=== PATIENT | female | born 1965 | race Caucasian/White ===

== ENCOUNTER → 2020-08-01 09:22 | Outpatient (CLI) | payer BC, SELFPAY ==
--- NOTE | ~2020-08-01 | US_ITS ---
US right upper quadrant INDICATION: Elevated liver enzymes PROCEDURE: Realtime right upper abdominal ultrasound. COMPARISON: No prior studies for comparison. FINDINGS: The pancreas is normal without focal mass or pancreatic ductal dilation. Liver echotexture is increased, consistent with fatty infiltration. There is normal directional flow in the portal ve in. The gallbladder is normal without stones, gallbladder wall thickening or pericholecystic fluid. Comm on bile duct measures 7 mm. No sonographic Aviles's sign. IMPRESSION: 1: Borderline size common bile duct measuring 7 mm. No obstructing stone or mass identified. 2: Hepatic steatosis. Reviewed, dictated and finalized at location A. IMPRESSION: 1: Borderline size common bile duct measuring 7 mm. No obstructing stone or mas s identified. 2: Hepatic steatosis.
== END ==
PROVIDERS: PCP Nurse Practitioner Family; Visit Provider Nurse Practitioner Family
DX: R74.8 Abnormal levels of other serum enzymes (principal); K76.0 Fatty (change of) liver, not elsewhere classified
CPT/HCPCS: 76705

== ENCOUNTER 2021-01-15 08:01 | Outpatient (CLI) | payer BC, SELFPAY | END 2021-01-15 08:02 | disposition home or self-care (01) | LOC: ANHCOVIDVC 08:01 | PROVIDERS: PCP Nurse Practitioner Family | DX: Z23 Encounter for immunization (principal) | CPT/HCPCS: 0001A; 91300 ==

== ENCOUNTER 2021-02-05 08:30 | Outpatient (CLI) | payer BC, SELFPAY | END 2021-02-05 08:31 | LOC: ANHCOVIDVC 08:30 | PROVIDERS: PCP Nurse Practitioner Family | DX: Z23 Encounter for immunization (principal) | CPT/HCPCS: 0002A; 91300 ==

== ENCOUNTER → 2021-07-01 10:29 | Outpatient (CLI) | payer BC, SELFPAY ==
--- NOTE | ~2021-07-01 | MM_ITS ---
EXAMINATION: MM screening [facility] BI w jassi HISTORY: Screening mammogram TECHNIQUE: Craniocaudal and mediolateral oblique 3-D tomosynthesis images were obtained and synthetic 2-D images were generated. CAD analysis was submitted and interpreted. COMPARISON: 10/21/2018, 04/15/2017 BREAST PARENCHYMAL COMPOSITION: There are scattered areas of fibroglandular density. FINDINGS: There is no evidence of suspicious mass, calcification, or architectural distortion to sugg est malignancy in either breast. There has been no suspicious interval change. IMPRESSION: 1. No mammographic evidence of malignancy. 2. Recommend routine screening mammography in one year. BI-RADS Category 1: Negative Reviewed, dictated and finalized at location A.
--- NOTE | ~2021-07-01 | DEXA_ITS ---
Bone Density Report Name: Lise Morgan Age: 55 Sex: Female Ethnicity: White Date of : 1965 Indication: osteopenia; height loss; prior fracture; postmenopausal Referring Provider: NORMACOLBY Rodriguez Study: Bone densitometry was performed. Exam Date: July 01, 2021 Accession number: [id number] Bone Density: Region BMD T-score Z-score Classification AP Spine (L1-L4) 0.990 -0.5 0.7 Normal Femoral Neck (Left) 0.641 -1.9 -0.7 Osteopenia Total Hip (Left) 0.765 -1.5 -0.6 Osteopenia Femoral Neck (Right) 0.629 -2.0 -0.8 Osteopenia Total Hip (Right) 0.755 -1.5 -0.7 Osteopenia Total Hip Mean 0.760 -1.5 -0.7 Osteopenia World Health Organization criteria for BMD impression classify patients as: Normal (T-score at or above -1.0), Osteopenia (T-score between -1.0 and -2.5), or Osteoporosis (T-score at or below -2.5). 10-year Fracture Risk(1): Major Osteoporotic Fracture 17% Hip Fracture 4.7% Reported Risk Factors: [place] (), Neck BMD=0.629, BMI=21.7, previous fracture, smoking, alcohol use (1) FRAX(R) Version 3.08. Fracture probability calculated for an untreated patient. Fracture probability may be lower if the patient has received treatment. Previous Exams: Region Exam Age BMD T-score BMD Change BMD Change Date g/cm2 vs Baseline vs Previous AP Spine(L1-L4) 07/01/2021 55 0.990 -0.5 0.059* 0.059* 12/06/2018 53 0.932 -1.0 Total Hip(Left) 07/01/2021 55 0.765 -1.5 0.021 0.021 12/06/2018 53 0.744 -1.6 Total Hip(Right) 07/01/2021 55 0.755 -1.5 0.023 0.023 12/06/2018 53 0.732 -1.7 *Denotes significance at 95% confidence level, LSC for AP Spine = 0.022 g/cm2, LSC for Total Hip = 0.027 g/cm2 Clinical Information Provided by Patient: Has had a low trauma fracture Smokes Has 3 or more alcoholic drinks per day Has used the following medications: Vitamin D Patient maximum height was 66.5 Menopause Age: 46 No regular weight bearing exercise Drinks caffeinated beverages Onset of menses at age 13 Number of children 2 Impression: The patient has low bone mass, based on the Right Femoral Neck T-score. The patient has an estimated ten-year risk of hip fracture of 4.7% and an estimated ten-year risk of major fracture of 17%, based on the WHO FRAX algorithm. The patient has risk factors, including: smoking, excessive alcohol use, previous fracture. No significant bone loss
== END ==
PROVIDERS: PCP Nurse Practitioner Family; Visit Provider Nurse Practitioner Family
DX: Z12.31 Encounter for screening mammogram for malignant neoplasm of breast (principal); Z13.820 Encounter for screening for osteoporosis; M85.88 Other specified disorders of bone density and structure, other site; M85.851 Other specified disorders of bone density and structure, right thigh; M85.852 Other specified disorders of bone density and structure, left thigh
CPT/HCPCS: 77063; 77067; 77080

== ENCOUNTER 2021-09-29 10:14 | Emergency (ER) | payer BC, SELFPAY ==
--- NOTE | ~2021-09-29 | XR_ITS ---
EXAMINATION: XR wrist LT min 3V DATE: 09/29/2021 10:37 INDICATION: Left wrist injury and swelling. TECHNIQUE: 4 views of left wrist were obtained. COMPARISON: None. FINDINGS: There is a comminuted fracture of distal radius with fracture lines involving the distal ar ticular surface and radioulnar joint. The main distal fracture fragment demonstrates impaction, 2 mm dorsal displacement, and dorsal angulation. There is 16 degrees dorsal tilt of the distal articular s urface. There is a comminuted fracture of the ulnar styloid, head, and neck in near-anatomic alignmen t. There is moderate osteoarthritis of first carpometacarpal joint. IMPRESSION: 1. Comminuted fractures of distal radius and ulna. Reviewed, dictated and finalized at location B. GRATION PATROL INSPECTOR
[2021-09-29 10:28] VITALS: BP 145/78; PULSE 88; RESP 18; TEMP 36.3; O2SAT 100
--- NOTE | 2021-09-29 10:36 | ED.UPPEXIN ---
HPI - Extremity Injury (Upper) General Chief Complaint: Extremity Injury, Upper Stated Complaint: Left Hand Pain Time Seen by Provider: 09/29/21 10:38 Source: patient, family, RN notes reviewed and old records reviewed Mode of arrival: ambulatory Limitations: no limitations History of Present Illness HPI narrative: 56-year-old female presents to the [facility] with complaints of left wrist and hand pain after tripping over her dog and landing with arm stretched out last night. Significant swelling, pain and bruising noted. Able to move fingers limited. Pain in the wrist. Pain with movement of the fingers. Able to do a thumbs up. Capillary refill under 2 seconds. Sensation intact distal to injuries. Denies any chest pain or shortness of breath. No abdominal pain. Denies hitting head, no loss of consciousness. Related Data Home Medications Medication Instructions Recorded Confirmed alendronate 70 mg PO DAILY 09/29/21 09/29/21 cyclobenzaprine 10 mg PO TID 09/29/21 09/29/21 lisinopril 10 mg PO DAILY 09/29/21 09/29/21 metoprolol tartrate 25 mg PO DAILY 09/29/21 09/29/21 rosuvastatin 20 mg PO DAILY 09/29/21 09/29/21 Allergies Allergy/AdvReac Type Severity Reaction Status Date / Time No Known Allergies Allergy Unverified 09/29/21 10:31 Review of Systems Review of Systems: All systems reviewed & are unremarkable except as noted in HPI and below Constitutional: Constitutional: Reports no additional constitutional complaints, Denies chills and Denies fever(s) Eyes: Eyes: Reports no additional eye complaints ENT: Reports system reviewed and no additional complaints, except as documented Cardiovascular: Cardiovascular: Reports no additional cardiovascular complaints and Denies chest pain Respiratory: Respiratory: Reports no additional respiratory complaints, Denies cough and Denies dyspnea Gastrointestinal: Gastrointestinal: Reports no additional gastrointestinal complaints, Denies abdominal pain, Denies nausea and Denies vomiting Musculoskeletal: Musculoskeletal: Reports as per HPI Comments: Left wrist pain, swelling, bruising Integumentary/Breasts: Skin/Breast: Reports system reviewed and no additional complaints, except as docu Neurologic: Reports system reviewed and no additional complaints, except as documented, Denies focal weakness, Denies numbness and Denies weakness Psychiatric: Psychiatric: Reports no additional psychiatric complaints Allergic/Immunologic: Allergic/Immunologic: Reports no additional allergic/immunologic complaints [facility] Past Medical History Medical History (Updated 09/29/21 @ 20:35 by Carrie Ellis) High cholesterol Hypertension Surgical History Surgical History (Updated 09/29/21 @ 20:35 by Carrie Ellis) History of heart surgery Family History Family History Other Family history of coronary artery disease Social History Social History (Updated 09/29/21 @ 20:35 by Carrie Ellis) Smoking status: Never smoker Alcohol intake: current Living arrangements: with family Gender identity (if verbalized by the patient): Female Comments Discharge instructions reviewed with patient, as well as provided in writing per nursing staff. The instructions also include specific and strict return/GO TO THE ER as well as f/u information. All questions have been answered, and the patient deny any further questions with discharge and discharge plan. Exam Const: General: alert and ill appearing acutely (Pain) and chronically Nutritional Appearance: thin Orientation/consciousness: patient oriented x3 Limitations: no limitations HENMT: Head: normal to inspection Eyes: Pupils: Equal, round and reactive pupils present Neck: Neck: normal visual inspection Chest: Chest palpation & inspection: normal inspection of the chest Resp: Effort & Inspection: normal respiratory effort Cardio: Rate: regular rate Rhythm: regular rhyt
--- NOTE | 2021-09-29 11:32 | PC.NURSE ---
1115- we have talked to ortho on-call (dr green) but he is currently in the OR and unable to get to anything but speaker phone, and is unable to review films for us, states that we can call er and speak with them. 1129- UNIVERSITY LIBRARIAN calling helga hudson at present
== END 2021-09-29 12:15 | disposition home or self-care (01) ==
PROVIDERS: Emergency Provider Nurse Practitioner; PCP Nurse Practitioner Family
DX: S52.592A Other fractures of lower end of left radius, initial encounter for closed fracture (principal); S52.615A Nondisplaced fracture of left ulna styloid process, initial encounter for closed fracture; S52.602A Unspecified fracture of lower end of left ulna, initial encounter for closed fracture; W01.0XXA Fall on same level from slipping, tripping and stumbling without subsequent striking against object, initial encounter; E78.00 Pure hypercholesterolemia, unspecified; I10 Essential (primary) hypertension
CPT/HCPCS: 29105; 73110; 99214; A4565; G0463

== ENCOUNTER 2021-10-09 01:11 | Day surgery (SDC) | payer BC, SELFPAY ==
[2021-10-01 13:07] VITALS: BMI 22.6
--- NOTE | 2021-10-01 14:04 | PC.NURSE ---
Report to the Outpatient Waiting Room, entrance under the green pavilion located off [facility], at time 1130 on 10-09-21. OR Time: 1330. - You and your visitor will be asked a series of questions to screen for COVID 19 for your protection. - A mask is required within the hospital. - Only one visitor is allowed at this time. Patient visitors will be guided where to wait when not with patient. Preoperative COVID Testing Requirements: No COVID Test needed if: (proof is required; if not received patient will have Rapid Test prior to entry) - Patient has received COVID Vaccine at least 14 days prior to procedure date or - Patient has positive COVID test result within last 90 days of surgery date. COVID Test needed if above criteria is not met If not COVID vaccinated a COVID test must be conducted within 72 hours of surgery and patient is asked to isolate self from time of testing until procedure. You will go to the [facility] for your COVID testing. The [facility] is located at the corner of [address] [facility]. You will only be called if COVID results are positive and your surgeon may reschedule your elective surgery date. Patients may have clear liquids (water, carbonated beverages, clear teas, apple juice) until 3 hours prior to surgery with a maximum of 20 ounces. - No food from midnight until time of surgery - Infants may have breast milk until 4 hours before surgery, formula 6 hours prior to surgery. - Children will be allowed to drink immediately following surgery. If applicable, please bring a bottle or sippy cup to assist with drinking. Juice, water, soda, and popsicles are readily available. For infants on formula, please bring formula the day of surgery. Pacifiers are allowed. Take the following medications with a SIP of water the morning of surgery: metoprolol, [place] if needed Medications to discontinue per physician: vitamins and supplements Date to take last dose 10-07-21 *May continue 81mg aspirin per order set* Please no make-up, nail spanish, hairspray, perfume, deodorant, or body powder the day of surgery. No jewelry (including any body piercings) or valuables the day of surgery, leave them at home. Please take a shower or bath the night before, or the morning of, surgery with an antibacterial soap. Wear comfortable, loose fitting clothing. Children are encouraged to wear pajamas. - Jewelry must be removed prior to entering the operating room. Rings and piercings that are not removed may be cut off. - The hospital will not accept responsibility for valuables. - Please leave all valuables, including medications, at home the day of surgery. If you are going home after surgery, a licensed local city driver must drive you home. - NO public transportation without another adult. - We recommend that an adult stay with you for 24 hours following discharge. - We also recommend that you do not drive, make important decision, drink alcoholic beverages, or take any drugs that were not prescribed by your health care provider for at least 24 hours after your discharge time. For Pediatric surgeries, we recommend two adults accompany the child home (only one inside the building at this time). Follow any additional instructions given to you from your surgeon. Telephone instructions given to Lise Morgan and asked if any additional questions and then verbalized understanding. Patient advised to call surgeon office or pre surgery nurse liaison [phone] if any additional questions.
[2021-10-09] VITALS (7 sets, daily range): BP systolic 86–114; BP diastolic 66–93; PULSE 84–102; RESP 13–20; TEMP 36.5–36.7; O2SAT 92–100
--- NOTE | ~2021-10-09 | XR_ITS ---
EXAMINATION: XR surgery orthopedic DATE: 10/09/2021 10:41 INDICATION: ORIF left wrist fracture TECHNIQUE: 3 fluoroscopic images of the left wrist were obtained during procedure performed by Dr. Clifton bustillo. Radiologist was not present for the imaging or procedure. The amount of fluoroscopy time used during this procedure was 0.4 minutes. COMPARISON: 09/30/2021 FINDINGS: Old reduction and internal fixation of a comminuted intra-articular fracture at the distal left radiu s. The fracture is fixed with intramedullary kathe with distal dorsal sided plate and screws and additi onal screws extending through the proximal aspect of the kathe through the dorsal metadiaphyseal region . Alignment post fixation appears near-anatomic. No significant fracture gap or incongruity appreciat ed at the articular surface post fixation. Unfixed minimally displaced fracture involving the ulnar s tyloid process. Normal alignment in the carpus. Mild to moderate osteoarthritis at the first carpomet acarpal joint. No new fractures identified. IMPRESSION: 1. Near-anatomic alignment post open reduction internal fixation of a comminuted intra-articular frac ture of the distal left radius. 2. Minimally displaced unfixed fracture of the ulnar styloid process. Reviewed, dictated and finalized at location A. RIALS MANAGER IMPRESSION: 1. Near-anatomic alignment post open reduction internal fixation of a comminute d intra-articular fracture of the distal left radius. 2. Minimally displaced unfixed fracture of the ulnar styloid process.
--- NOTE | 2021-10-09 06:46 | WPDHPUPDATE1 ---
History and Physical Update Update Date/Time: 10/09/21 06:46 History and Physical has been reviewed, including an updated exam of the patient. There are NO changes in the patient's condition. Risks, benefits, and alternatives have been discussed and questions answered. Patient agrees to proceed with procedure.
[2021-10-09] MEDS: ACETAMINOPHEN 500 MG TABLET 1000 MG PO (08:13)
[2021-10-09] MEDS: LACTATED RINGERS 1,000 ML 30 ML IV CONT (08:13)
[2021-10-09] MEDS: KETOROLAC 15 MG/ML VIAL (*BKC) IV PUSH (08:14)
--- NOTE | 2021-10-09 08:28 | WPDANESEPPF ---
Anes - Initial Pre Proc Eval Procedure: Operation Date: 10/09/21 09:30 Proposed Procedures p Open Reduction Internal Fixation Left Wrist - Sharif Motta MD Date/Time: 10/09/21 08:28 Surgeon: Sharif Motta MD Pre Op Diagnosis: Lt Wrist Fracture Patient Data Age: 56 Gender: F Height: 1.65 m Weight: 58.65 kg Last Vital Signs Temp 36.7 C 10/09/21 07:57 Pulse 102 H 10/09/21 07:57 Resp 20 10/09/21 07:57 BP 96/69 L 10/09/21 07:57 Pulse Ox 100 10/09/21 07:57 Allergies Allergy/AdvReac Type Severity Reaction Status Date / Time No Known Allergies Allergy Verified 10/09/21 07:59 Home Medications Medication Instructions Recorded Confirmed Type alendronate 70 mg PO WEEKLY 09/29/21 10/09/21 History cyclobenzaprine 10 mg PO HS 09/29/21 10/09/21 History lisinopril 10 mg PO DAILY 09/29/21 10/09/21 History metoprolol tartrate 25 mg PO BID 09/29/21 10/09/21 History rosuvastatin 20 mg PO DAILY 09/29/21 10/09/21 History aspirin [Adult Aspirin] 81 mg PO DAILY 10/01/21 10/09/21 History cholecalciferol (vitamin D3) 125 mcg PO DAILY 10/01/21 10/09/21 History [Vitamin D3] vitamin B complex [B 1 tablet PO DAILY 10/01/21 10/09/21 History Complex-Vitamin B12] hydrocodone 5 mg-acetaminophen 325 1 tablet PO Q6H PRN #10 tablet 10/06/21 10/09/21 Rx mg tablet Patient hx anesthesia problems: none Family hx anesthesia problems: none Results Review: All pre-operative results and documents have been reviewed as part of the pre-operative evaluation. 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 Family History Family History Other Family history of coronary artery disease Social History Social History Smoking packs per day: 1 Smoking cigarettes per day: 20.0 Years smoked: 43 Smoking pack-years: 43.00 Smoking status: Current every day smoker Tobacco type: cigarettes Second hand tobacco smoke exposure: Yes Alcohol intake: current Drinks per week: 24 Alcohol use details: beer Substance use: never Substance use type: does not use Living arrangements: with family Gender identity (if verbalized by the patient): Female Spiritual care concerns: No Anes - Eval Final PreProcedure Day of Procedure 10/09/21 08:28 Patient weight: normal Heart: regular rate and rhythm Lungs: clear to auscultation and normal air movement Airway: Mallampati scale class II Neurological: alert and oriented Last oral intake: >/= 8 hours ASA classification: IV Emergent: no Anesthetic plan: proceed Anesthesia type and monitoring: general LMA and standard monitoring Results Review: All pre-operative results and documents have been reviewed as part of the pre-operative evaluation. Informed Consent: The patient's anesthetic plan and its attendant risks and benefits were discussed with the patient/family/POA. Questions were solicited and answers provided to the satisfaction of the patient/family/POA.
[2021-10-09] MEDS: ceFAZolin 2 GM/D5W 50 ML 2 GM/50 ML BAG IVPB (09:32)
[2021-10-09] MEDS: BUPIVACAINE HCL 0.5% PF 30 ML VIAL INFILTRATE (10:01)
--- NOTE | 2021-10-09 11:08 | W.PM.PROC2 ---
Procedure Note - Detailed Date of Procedure 10/09/21 Pre-op Diagnosis Lt Wrist Fracture Post-op Diagnosis same Procedure Performed Open reduction internal fixation left distal radius fracture Surgeon Sharif Motta MD Natural Resources Extension Educator 1st customer marketing assistant Anesthesia general Indications 56-year-old woman who fell onto her left outstretched hand. Comminuted intra-articular distal radius fracture with displacement. Patient desires operative treatment. Findings Comminuted fracture distal radius with greater than 4 fragments. Intra-articular. Description of Procedure What was done: After informed consent the operative extremity was marked in the preoperative holding area. Patient received intravenous antibiotics. Patient taken to the operating room where they underwent general anesthesia. Positioned supine on operating table. Time-out performed confirming the patient, patient's site of surgery and the plan. Left upper extremity prepped and draped in the usual sterile surgical fashion using a ChloraPrep skin solution. Hand and wrist exsanguinated and arm tourniquet inflated to 225 mmHg. Dorsal longitudinal incision made centered over Guadalupe's tubercle with a 15 blade knife. Dorsal retinaculum incised in line with skin incision. Careful dissection to identify the extensor pollicis tendon which was retracted. Dorsal periosteum elevated off of the distal radius. Guadalupe's tubercle removed with rongeur. Fracture reduced manually and with use of elevator. Fracture used as entry point for the starter awl for the distal radius. Intramedullary canal reamed with the awl. Intramedullary dorsal nail then placed retrograde and seated into position. Fluoroscopy used to confirm reduction of the fracture placement of the hardware. Comminuted distal fracture then fixed with multiple locking 2 mm smooth pegs. Four of these placed and verified for position using fluoroscopy. Care to make sure no penetration of articular surface. Unicortical proximal locking screws used to secure the nail to the radius. Final reduction of the fracture, alignment of the wrist joint and placement of the hardware verified with image intensification. Wound thoroughly irrigated with antibiotic solution. Periosteum closed over the nail to protect the extensor pollicis tendon. Skin closed with interrupted subcutaneous 000 Monocryl interrupted suture and running 000 Monocryl subcuticular stitch. Local anesthetic with 0.5% Marcaine. Sterile dressing applied. Patient awoke from anesthesia, extubated and taken to the recovery room in stable condition. All sponge and instrument counts correct at the end of case. Implants Biomet distal radius intramedullary nail with locking pegs Estimated Blood Loss -5.0 Tourniquet Time 45 Drains No Packing No Pathology none sent Complications None Condition stable Disposition PACU
== END 2021-10-09 12:50 | disposition home or self-care (01) ==
PROVIDERS: PCP Nurse Practitioner Family; Visit Provider Orthopaedic Surgery
PROC: (CPT 25575; principal; 2021-10-09 09:30)
DX: S52.572A Other intraarticular fracture of lower end of left radius, initial encounter for closed fracture (principal); S52.612A Displaced fracture of left ulna styloid process, initial encounter for closed fracture; W19.XXXA Unspecified fall, initial encounter; I10 Essential (primary) hypertension; E78.00 Pure hypercholesterolemia, unspecified; Z86.73 Personal history of transient ischemic attack (TIA), and cerebral infarction without residual deficits; Z79.82 Long term (current) use of aspirin; Z95.1 Presence of aortocoronary bypass graft; F17.210 Nicotine dependence, cigarettes, uncomplicated
CPT/HCPCS: 25609; A9270; C1713; C1776; J0330; J0690; J1100; J1885; J2250; J2270; J2370; J2405; J2704; J3010; J7120

== ENCOUNTER → 2022-08-03 09:50 | Outpatient (CLI) | payer BC, SELFPAY ==
--- NOTE | ~2022-08-03 | US_ITS ---
US abdomen limited INDICATION: Elevated liver enzymes PROCEDURE: Realtime right upper abdominal ultrasound. COMPARISON: 08/01/2020 FINDINGS: The pancreas is normal without focal mass or pancreatic ductal dilation. Liver echotexture is normal without focal mass or intrahepatic biliary dilatation. There is normal directional flow i n the portal vein. The gallbladder is normal without stones, gallbladder wall thickening or pericholecystic fluid. Comm on bile duct measures 4 mm. No sonographic Aviles's sign. IMPRESSION: 1: Normal limited abdominal ultrasound. Reviewed, dictated and finalized at location B.
== END ==
PROVIDERS: PCP Nurse Practitioner Family; Visit Provider Nurse Practitioner Family
DX: R74.8 Abnormal levels of other serum enzymes (principal)
CPT/HCPCS: 76705

== ENCOUNTER → 2022-12-24 07:27 | Outpatient (CLI) | payer BC, SELFPAY ==
--- NOTE | ~2022-12-24 | MM_ITS ---
EXAMINATION: MM screening [facility] BI w jassi HISTORY: Screening mammogram TECHNIQUE: Craniocaudal and mediolateral oblique 3-D tomosynthesis images were obtained and synthetic 2-D images were generated. CAD analysis was submitted and interpreted. COMPARISON: 06/27/2021, 10/21/2018, 04/15/2017 bilateral screening mammogram examinations BREAST PARENCHYMAL COMPOSITION: There are scattered areas of fibroglandular density. FINDINGS: Stable mild fibroglandular asymmetry since 04/25/2017. There is no evidence of suspicious ma ss, calcification, or architectural distortion to suggest malignancy in either breast. There has been no suspicious interval change. IMPRESSION: 1. No mammographic evidence of malignancy. 2. Recommend routine screening mammography in one year. BI-RADS Category 1: Negative Reviewed, dictated and finalized at location A. TRONIC EQUIPMENT MAINT TECH
== END ==
PROVIDERS: PCP Nurse Practitioner Family; Visit Provider Nurse Practitioner Family
DX: Z12.31 Encounter for screening mammogram for malignant neoplasm of breast (principal)
CPT/HCPCS: 77063; 77067

== ENCOUNTER → 2023-01-19 08:51 | Outpatient (CLI) | payer BC, SELFPAY ==
--- NOTE | ~2023-01-19 | CT_ITS ---
EXAMINATION: CT lung screening DATE: 01/19/2023 09:05 INDICATION: Nicotine dependence TECHNIQUE: Computed tomography (CT) of the chest was performed without intravenous contrast. Addition al 3D reconstructions utilizing coronal maximum intensity projection (MIP) were performed. Automated exposure control and iterative reconstruction technique were employed. The dose-length product was 60 .84 mGy-cm. COMPARISON: None FINDINGS: Mild to moderate emphysema. Tiny calcified left lower lobe nodule consistent with old granulomatous d isease. No other pulmonary nodules, pneumonia, pulmonary edema or other pulmonary infiltrates. No ple ural effusion or pneumothorax. Heart size is normal. Atherosclerotic coronary artery calcifications a nd change of prior median sternotomy and coronary artery bypass grafting. Thoracic aorta is normal in caliber. 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 No pat hologically enlarged thoracic lymphadenopathy. Mild to moderate thoracic spondylosis. IMPRESSION: 1. Lung-RADS category 1: Negative. Continue annual screening with noncontrast low-dose chest CT in 12 months. 2. 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 Could conside r carotid CT angiogram for further evaluation. Reviewed, dictated and finalized at location L. IMPRESSION: 1. Lung-RADS category 1: Negative. Continue annual screening with noncontrast l ow-dose chest CT in 12 months. 2. 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 Could consider carotid CT angiogram for further evaluation.
== END ==
PROVIDERS: PCP Nurse Practitioner Family; Visit Provider Nurse Practitioner Family
DX: Z12.2 Encounter for screening for malignant neoplasm of respiratory organs (principal); F17.210 Nicotine dependence, cigarettes, uncomplicated; I77.1 Stricture of artery
CPT/HCPCS: 71271

== ENCOUNTER → 2023-04-14 11:13 | Outpatient (CLI) | payer BC, SELFPAY ==
--- NOTE | ~2023-04-14 | XR_ITS ---
Right Humerus Technique: AP and lateral views were obtained. Clinical History: Pain Findings: No fracture or dislocation is seen. Osseous alignment is anatomic. Visualized joint spaces are grossly preserved. Soft tissues are unremarkable. Impression: Unremarkable examination. No fracture or dislocation. Reviewed, dictated and finalized at location . Impression: Unremarkable examination. No fracture or dislocation.
--- NOTE | ~2023-04-14 | XR_ITS ---
Right elbow Technique: AP, oblique, and lateral views were obtained. Clinical History: Pain Findings: No acute fracture or dislocation is seen. Osseous alignment is anatomic. Joint spaces are p reserved. There is no displacement of the fat pads, and soft tissues are unremarkable. Impression: Unremarkable radiographs. Reviewed, dictated and finalized at location . Impression: Unremarkable radiographs.
--- NOTE | ~2023-04-14 | XR_ITS ---
Right Knee Technique: AP, lateral, and sunrise views were obtained. Clinical History: Pain Findings: No fracture or dislocation is seen. Osseous alignment is anatomic. Joint spaces are preserv ed without degenerative or erosive change. Basilar calcifications are present. No joint effusion is s een. Impression: No fracture or dislocation. Reviewed, dictated and finalized at location . Impression: No fracture or dislocation.
--- NOTE | ~2023-04-14 | XR_ITS ---
Right Shoulder Technique: AP and axillary views were obtained. Clinical History: Pain Findings: There is a fracture the lateral aspect of the right fourth rib. No other fracture or disloc ation seen. The glenohumeral and acromioclavicular joint spaces are preserved. Soft tissues are unrem arkable. Impression: Fracture the lateral aspect of the right fourth rib. No other fracture or dislocation. Reviewed, dictated and finalized at [facility]. Impression: Fracture the lateral aspect of the right fourth rib. No other fracture or dislocation.
== END ==
PROVIDERS: PCP Nurse Practitioner Family; Visit Provider Registered Nurse
DX: S22.31XA Fracture of one rib, right side, initial encounter for closed fracture (principal); M25.561 Pain in right knee; W19.XXXA Unspecified fall, initial encounter; M25.521 Pain in right elbow; M25.511 Pain in right shoulder; M79.601 Pain in right arm
CPT/HCPCS: 73030; 73060; 73080; 73562

== ENCOUNTER 2023-06-04 12:22 | Emergency (ER) | payer BC, SELFPAY ==
[2023-06-04] VITALS (8 sets, daily range): BP systolic 50–152; BP diastolic 39–82; PULSE 72–89; RESP 14–18; TEMP 36.3; O2SAT 94–100
--- NOTE | ~2023-06-04 | XR_ITS ---
XR chest 1V DATE: 06/04/2023 13:28 INDICATION: Hypotension TECHNIQUE: AP chest COMPARISON: 01/19/2023 CT lung screening 08/30/2017 two-view chest FINDINGS: Status post sternotomy. Normal heart size. Aortic arch calcification, mild aortic unfolding . No hilar or mediastinal enlargement. No pulmonary infiltrate or consolidation, pleural effusion or pulmonary vascular congestion or pneumo thorax is detected. Osteopenia. IMPRESSION: Status post sternotomy No active cardiopulmonary disease Aortic atherosclerosis Reviewed, dictated and finalized at location B.
--- NOTE | ~2023-06-04 | CT_ITS ---
EXAMINATION: CT brain wo con DATE: 06/04/2023 13:27 INDICATION: Seizure and headaches TECHNIQUE: Computed tomography (CT) of the head was performed without intravenous contrast. Sagittal and coronal reconstructions were performed. The mA was adjusted according to patient size. Iterative reconstruction technique was employed. The dose-length product was 605.33 mGy-cm. COMPARISON: Head CT dated 07/06/2014 and brain MR dated 08/31/2017 FINDINGS: Again seen are couple small old infarcts along gyri in the right frontoparietal region. There is mode rate-sized region of encephalomalacia consistent with additional chronic infarct in the medial left o ccipital lobe which is new since the prior study. No acute intracranial hemorrhage, acute infarction or abnormal extra axial fluid collection. There is mild scattered white matter hypoattenuation consis tent with chronic small vessel ischemic disease. There is focal expected dilation of the occipital ho rn of the left lateral ventricle. Ventricles are otherwise normal and symmetric. No mass/mass effect. Intracranial calcified cerebral atherosclerosis is noted. The orbits, paranasal sinuses and mastoid air cells are normal. IMPRESSION: 1. Chronic infarcts in the left occipital lobe and along a couple gyri in the right frontoparietal re gion. No acute intracranial process. 2. Mild scattered white matter hypoattenuation consistent with chronic small vessel ischemic disease. Reviewed, dictated and finalized at location A. IMPRESSION: 1. Chronic infarcts in the left occipital lobe and along a couple gyri in the r ight frontoparietal region. No acute intracranial process. 2. Mild scattered white matter hypoattenuation consistent with chronic small ve ssel ischemic disease.
[2023-06-04] MEDS: SODIUM CHLORIDE 0.9% IV 2,000 ML 999 ML IV CONT (12:54)
--- NOTE | 2023-06-04 13:10 | ED.SEIZURE ---
HPI - Seizure General Chief Complaint: Seizure Stated Complaint: seizure Time Seen by Provider: 06/04/23 12:31 History of Present Illness HPI Narrative: This is a 57-year-old female, with past history stroke and hypertension who presents to the emergency department complaining of 2 seizures today. The patient states she was in her usual state of health, at home, when she had seizure-like activity. Her , who is at bedside witnessed it stating it lasted approximately 2 minutes. EMS reports on arrival, the patient was alert and oriented x3, in route to the ambulance, the patient had a second seizure with eye deviation towards the right lasting approximately 30 seconds. The patient complains of throbbing diffuse headache, rated 5/10 but denies weakness or numbness. Related Data Home Medications Medication Instructions Recorded Confirmed alendronate 70 mg tablet 70 mg PO WEEKLY 09/29/21 12/12/21 cyclobenzaprine 10 mg tablet 10 mg PO HS 09/29/21 12/12/21 lisinopril 10 mg tablet 10 mg PO DAILY 09/29/21 12/12/21 metoprolol tartrate 25 mg tablet 25 mg PO BID 09/29/21 12/12/21 rosuvastatin 20 mg tablet 20 mg PO DAILY 09/29/21 12/12/21 aspirin 81 mg tablet 81 mg PO DAILY 10/01/21 12/12/21 cholecalciferol (vitamin D3) 125 125 mcg PO DAILY 10/01/21 12/12/21 mcg (5,000 unit) tablet (Vitamin D3) vitamin B complex (B 1 tablet PO DAILY 10/01/21 12/12/21 Complex-Vitamin B12 tablet) Allergies Allergy/AdvReac Type Severity Reaction Status Date / Time acetaminophen [From [facility]] Allergy Itching Verified 06/04/23 12:45 hydrocodone [From [facility]] Allergy Itching Verified 06/04/23 12:45 Review of Systems Review of Systems: CONSTITUTIONAL: Denies fever, chills, or sweats. CARDIOVASCULAR: Denies chest pain, palpitations, or edema. RESPIRATORY: Denies cough or dyspnea. GASTROINTESTINAL: Denies abdominal pain, nausea, vomiting, or diarrhea. GENITOURINARY: Denies dysuria or hematuria. SKIN: Denies rash or itching. MUSCULOSKELETAL: Denies back pain, joint pain, or myalgia. NEUROLOGIC: Headache, seizure-like activity denies numbness, dizziness, or weakness. PSYCHIATRIC: Denies anxiety or depression. [facility] Past Medical History Medical History CVA (cerebral vascular accident) x2, weakness right hand Encounter for postoperative care Fracture of distal end of left radius High cholesterol Hypertension Surgical History Surgical History H/O left wrist surgery ORIF Left wrist 10/09/[address] Motta Hx of CABG x3, 2017 S/P IVC filter Family History Family History Other Family history of coronary artery disease Social History Social History Smoking packs per day: 1 Smoking cigarettes per day: 20.0 Years smoked: 43 Smoking pack-years: 43.00 Tobacco type: cigarettes Second hand tobacco smoke exposure: Yes Alcohol intake: current Drinks per week: 24 Alcohol use details: beer Substance use: never Substance use type: does not use Living arrangements: with family Gender identity (if verbalized by the patient): Female Spiritual care concerns: No Exam Narrative: GENERAL: Well-developed, well-nourished, and in no acute distress. HEAD: Normocephalic, atraumatic. EYES: PERRLA and EOMI. ENT: Nares clear, no rhinorrhea or epistaxis. Mucous membranes moist. Oropharynx without tonsillar hypertrophy exudate or other lesions. CHEST: Clear to auscultation. No respiratory distress. No wheezes rales or rhonchi HEART: Regular rate and rhythm. No murmur heard. Normal peripheral pulses. ABDOMEN: Soft, nontender, nondistended, normal active bowel sounds. EXTREMITIES: Normal range of motion. No edema. SKIN: Warm, dry, no rash. NEURO: No focal deficits. Alert and oriented x3. Stren
[2023-06-04 13:11] LABS: Basophils Percent Auto 0.3 % (0.2-1.2); Eosinophils Absolute Auto 0.1 K/mm3 (0-0.3); Eosinophils Percent Auto 0.9 % (0-4.4); Hematocrit 36.9 % (37.0-47.0); Hemoglobin 12.7 g/dL (12.0-15.0); Immature Granulocyte Absolute 0.06 K/mm3 (0.00-0.031); Immature Granulocyte Percent A 0.5 % (0-0.5); Lymphocytes Absolute Auto 0.81 K/mm3 (0.9-3.2); Mean Corpuscular HGB Conc 34.4 g/dl (32-36); Mean Corpuscular Hemoglobin 32.1 pg (26-34); Mean Corpuscular Volume 93.2 fl (80-100); Mean Platelet Volume 9.9 fl (7.4-10.4); Monocytes Absolute Auto 0.6 K/mm3 (0.1-0.6); Neutrophils Percent Auto 86.3 % (45.5-73.1); Platelet Count Result 172 k/mm3 (150-375); Red Blood Count 3.96 M/mm3 (4.2-5.4); Red Cell Distribution Width 12.8 % (11.5-14.5); White Blood Count 11.6 K/mm3 (4.5-10.0)
[2023-06-04 13:27] LABS: Ethanol < 10 mg/dL (<10); Lactic Acid Reflex 1.4 mmol/L (0.7-2.0)
[2023-06-04 13:27] LABS: Creatine Kinase 56 U/L (30-135)
[2023-06-04 13:48] LABS: Alanine Aminotransferase 45 U/L (6-35); Albumin Level 4.3 g/dL (3.5-5.1); Alkaline Phosphatase 91 U/L (38-126); Anion Gap 14 mmol/L (8-16); Aspartate Amino Transferase 61 U/L (14-36); Bilirubin,Total 0.8 mg/dL (0.2-1.3); Blood Urea Nitrogen 10 mg/dL (7-17); Calcium 10.4 mg/dL (8.4-10.2); Carbon Dioxide 19 mmol/L (22-30); Chloride 98 mmol/L (98-107); Estimated CRCL calculation 62 ml/min; Estimated Glomerular Filt Rate > 60; Glucose 139 mg/dL (65-110); Magnesium 1.6 mg/dL (1.6-2.3); Potassium 4.4 mmol/L (3.4-5.0); Sodium 131 mmol/L (137-145)
[2023-06-04 14:11] LABS: Glucose Point of Care 110 mg/dl (65-105)
--- NOTE | 2023-06-04 14:30 | PC.NURSE ---
Pt is able to ambulate to the bathroom and eats some chips and parts of a sandwich with no nausea at this time.
[2023-06-04 14:41] LABS: Appearance Urine Cloudy (Clear); Bacteria Urine 1+ /hpf; Bilirubin Urine Negative (Negative); Blood Urine Negative (Negative); Color Urine Yellow (Yellow); Glucose Urine UA Negative (Negative); Ketones Urine Negative (Negative); Leukocyte Esterase Ur 1+ LEU/UL (Negative); Nitrate Urine Negative (Negative); Protein Urine Trace mg/dL (Negative); RBC Urine 0-2 /hpf (0-2); Specific Grav Ur 1.006 (1.001-1.035); Squamous Epithelial Cell Urine Many /hpf (Few); Urobilinogen Urine 0.2 mg/dL (<2.0); pH Urine 6.5 (5.0-9.0)
[2023-06-04 14:42] LABS: Add Urine Microscopic? YES
[2023-06-04 14:50] LABS: Amphetamine Screen Urine Negative (Negative); Barbiturate Screen Urine Negative (Negative); Benzodiazepines Screen Urine Negative (Negative); Cannabinoid Screen Urine Negative (Negative); Cocaine Screen Urine Negative (Negative); Methadone Screen Urine Negative (Negative); Opiate Screen Urine Negative (Negative); Phencyclidine Screen Urine Negative (Negative)
== END 2023-06-04 17:10 | disposition home or self-care (01) ==
PROVIDERS: Emergency Provider Preventive Medicine Aerospace Medicine; PCP Nurse Practitioner Family
DX: R56.9 Unspecified convulsions (principal); T36.8X5A Adverse effect of other systemic antibiotics, initial encounter; N39.0 Urinary tract infection, site not specified; I69.331 Monoplegia of upper limb following cerebral infarction affecting right dominant side; E78.00 Pure hypercholesterolemia, unspecified; I10 Essential (primary) hypertension; F17.210 Nicotine dependence, cigarettes, uncomplicated; Z95.1 Presence of aortocoronary bypass graft
CPT/HCPCS: 36415; 70450; 71045; 80053; 80307; 81001; 82550; 82948; 83605; 83735; 85025; 87086; 96361; 96365; 99284; J1953; J7030

== ENCOUNTER 2024-01-14 09:30 | Outpatient (CLI) | payer BC, SELFPAY ==
--- NOTE | ~2024-01-14 | US_ITS ---
Limited Abdominal Sonogram: Real-time sonographic imaging of the right upper quadrant was performed. Clinical History: Abnormal serum enzyme levels Findings: The liver appears echogenic, with no evidence of mass lesion or bile duct dilatation. Main portal vein demonstrates normal direction of flow. The gallbladder is well distended, and appears no rmal with no evidence of gallstone or wall thickening. The common bile duct measures 5 mm. The visua lized pancreas, aorta, and IVC are unremarkable. Right kidney measures 11.3 cm in length, without hyd ronephrosis. Impression: Diffuse fatty infiltration of liver. Reviewed, dictated and finalized at location M[facility] Impression: Diffuse fatty infiltration of liver.
== END 2024-01-14 09:31 ==
LOC: MICIMG 09:31
PROVIDERS: PCP Nurse Practitioner Family; Visit Provider Nurse Practitioner Family
DX: K76.0 Fatty (change of) liver, not elsewhere classified (principal); R74.8 Abnormal levels of other serum enzymes
CPT/HCPCS: 76705

== ENCOUNTER 2025-03-26 07:32 | Outpatient (CLI) | payer BC, SELFPAY ==
--- NOTE | ~2025-03-26 | CT_ITS ---
EXAMINATION: CT lung screening DATE: 03/26/2025 07:47 INDICATION: NICOTINE DEPENDENCE TECHNIQUE: Computed tomography (CT) of the chest was performed without intravenous contrast. Addition al 3D reconstructions utilizing coronal maximum intensity projection (MIP) were performed. Automated exposure control and iterative reconstruction technique were employed. The dose-length product was 72 .34 mGy-cm. COMPARISON: 01/19/2023 FINDINGS: Mild to moderate emphysema. Tiny calcified left lower lobe nodule consistent with old granulomatous d isease. No other suspicious pulmonary nodules, pneumonia, pulmonary edema or pleural effusion. Heart size is normal./Chronic coronary artery calcifications with change of prior mediastinal and coronary artery bypass grafting. Aortic valve calcification. No pericardial effusion. Thoracic aorta is normal in caliber. There is dense atherosclerotic calcification is at the origin of the innominate artery l ikely resulting in severe stenosis. No pathologically enlarged thoracic lymphadenopathy. Mild to mode rate thoracic spondylosis. IMPRESSION: 1. Lung-RADS category 1: Negative. Continue annual screening with noncontrast low-dose chest CT in 12 months. 2. 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 Reviewed, dictated and finalized at location A. IMPRESSION: 1. Lung-RADS category 1: Negative. Continue annual screening with noncontrast l ow-dose chest CT in 12 months. 2. 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
--- OUTSIDE RECORDS SUMMARY | 2025-03-26 07:38 | XMS_ITS | Encounter Summary ---
Author Organization [facility] Address [address] [place] [id number] Care Team Providers Care Polisher Eyeglass Frames Name Role Phone Glory Jin Primary Care Provider Jean Gonzalez MD Unavailable [phone] Sona Campos MD Unavailable [phone] Reason for Visit * Reason Onset Date Comments Information 03/21/2025 Encounter Details Date Type Department Care Team (Late st Contact Info) Description 03/21/2025 Telephone [facility] [address] [place] [address] Glory Jin FNP [address] [place] [address] Information Social History Tobacco Use Types Packs/Day Years Used Date Smoking Tobacco: Every Day Cigarettes 0.5 47.4 Started: 1979 Passive Smoke Exposure: Current Smokeless Tobacco: Never Alcohol Use Standard Drinks/Week Comments Yes 46.7 (1 standard drink = 0.6 oz pure alcohol) [facility] Utilities Answer Date Recorded In the past 12 months has [facility] [employer] gas, oil, or water [employer] threatened to shut off services in your home? No 03/09/2025 Humiliation, Afraid, Rape, and Kick questionnair e Answer Date Recorded Within the last year, have y ou been afraid of your partner or ex-partner? No 03/09/2025 Within the last year, have y ou been humiliated or emotionally abused in other ways by your partner or ex-partner? No Within the last year, have y ou been kicked, hit, slapped, or otherwise physically hurt by your partner or ex-partner? No 03/09/2025 Within the last year, have y ou been raped or forced to have any kind of sexual activity by your partner or ex-partner? No 03/09/2025 AUDIT-C Answer Date Recorded Frequency of Alcohol Consumption 2-3 times a weherbert chaudhary 09/23/2018 Average Number of Drinks Not on file 018 Frequency of Binge Drinking Not on file 09/08 Overall Financial Resource Strain (CARDIA) Answe r Date Recorded How hard is it for you to pa y for the very basics like food, housing, medical care, and heating? Not hard at all 03/09/2025 PHQ-2 Answer Date Recorded Patient Health Questionnaire-2 Score 0 03/09/2025 Hunger Vital Sign Answer Date Recorded Within the past 12 months, y ou worried that your food would run out before you got the money to buy more. Never true 03/09/20 25 Within the past 12 months, t he food you bought just didn't last and you didn't have money to get more. Never true 03/09/2025 PRAPARE - Transportation Answer Date Re corded In the past 12 months, has l ack of transportation kept you from medical appointments or from getting medications? No 12/2024 In the past 12 months, has l ack of transportation kept you from meetings, work, or from getting things needed for daily living? No 03/09/2025 Housing Stability Vital Sign Answer Reginaldo e Recorded In the last 12 months, was t here a time when you were not able to pay the mortgage or rent on time? No 03/09/2025 In the past 12 months, how m any times have you moved where you were living? 0 03/09/2025 At any time in the past [address] [facility], were you homeless or living in a care home (including now)? 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 Answer Date of Assessment Author Status No 03/09/2025 8:37 PM CDT Iris Beach, R N Active * Do you have serious difficulty walking or climbing stairs? Answer Date of Assessment Author Status No 03/09/2025 8:37 PM CDT Iris [place], R N Active * Do you have difficulty dressing or bathing? Answer Date of Assessment Author Status No 03/09/2025 8:37 PM CDT Iris [place], R N Active * Because of a physical, mental, or emotional condition, do you have difficulty doing errands alone such as visiting a doctor's office or shopping? Answer Date of Assessment Author Status No 03/09/2025 8:37 PM CDT Iris [place], R N Active documented as of this encounter Mental Status * Because of a physical, mental, or emotional condition, do you have serious difficulty concentrating, remembering, or making decisions? Answer Entry Date Author Status No 03/09/2025 8:37 PM CDT Iris [place], R N Active documented in this encounter Progress Notes * Mya Bill MA - 03/21/2025 2:18 PM CDT fyi * Leeanna Mac - 03/21/2025 1:29 PM CDT Patient has now scheduled her CT for March 26 at [facility] Patient cannot get a Mammogram until August but is scheduled for such. documented in this encounter Plan of Treatment Upcoming Encounters Date Type Department Care Team (Late st Contact Info) Description 04/19/2025 11:30 AM CDT [facility] [address] [address] Marcos Fu MD [facility] [address] [place] [address] 04/20/2025 1:30 PM CDT Office Visit [facility] [address] Jean Gonzalez MD [facility] [address] [place] [address] 06/01/2025 9:00 AM CDT Office Visit [facility] Medical [facility] - [address], [address] [place] [id number] Sona Campos MD [address] [place] [id number] documented as of this encounter Goals Goal Patient Goal Type Associated Problems Recent Progress Patient-Stated? 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
--- OUTSIDE RECORDS SUMMARY | 2025-03-26 07:38 | XMS_ITS | Clinical Summary ---
Author Organization [facility] Address [address] [place] [address] Care Team Providers Care Machine Adjuster Helper Name Role Phone Glory Jin CESAR Primary Care Provider [phone] Jean Gonzalez MD Unavailable [phone] Sona Campos MD Unavailable [phone] Allergies Active Allergy Reactions Criticality Noted Date Comments Sulfamethoxazole-Trimethoprim Seizure High 2022 Hydrocodone-Acetaminophen Itching Low 06/18/2023 Medications aspirin 81 MG tablet Take 1 tablet (81 mg total) by mouth daily. Active vitamin B-1 100 MG tablet Take 1 tablet (100 mg total) by mouth daily. 09/07/20 17 Active vitamin B-12 (CYANOCOBALAMIN) (CYANOCOBALAMIN) 1000 mcg tablet Take 1 tablet (1,000 mcg total) by mouth daily. Active calcium carbonate (OS-TERENCE) 600 MG tablet Take 1 tablet (600 mg total) by mouth 2 (two) times daily. Active levETIRAcetam (KEPPRA) 500 MG tabletIndications :Seizure (CMS/HCC HHS/HCC) TAKE 1 TABLET(500 MG) BY MOUTH TWICE DAILY 60 tablet 11 08/09/20 24 Active magnesium oxide (MAG-OX) 250 MG tablet Take 1 tablet (250 mg total) by mouth daily. Active Coenzyme Q10 (COQ-10) 100 MG Cap Take 1 capsule by mouth daily. Active metoprolol tartrate (LOPRESSOR) 25 MG tabletIndications :Essential hypertension TAKE 1 TABLET(25 MG) BY MOUTH TWICE DAILY 180 tablet 1 02/14/20 25 Active folic acid (FOLVITE) 1 MG tabletIndications :Folic acid deficiency TAKE 1 TABLET(1 MG) BY MOUTH DAILY 30 tablet 02/17/20 25 Active cyclobenzaprine (FLEXERIL) 10 MG tabletIndications :Muscle spasm TAKE 1 TABLET(10 MG) BY MOUTH THREE TIMES DAILY NEEDED FOR MUSCLE SPASMS 90 tablet 02/20/20 25 Active lisinopril (PRINIVIL) 10 MG tabletIndications :Essential hypertension TAKE 1 TABLET(10 MG) BY MOUTH DAILY 90 tablet 02/20/20 25 Active rosuvastatin (CRESTOR) 40 MG tabletIndications :Mixed hyperlipidemia Take 1 tablet (40 mg total) by mouth nightly at bedtime. 90 tablet 3 03/08/20 25 Active alendronate (FOSAMAX) 70 MG tabletIndications :Osteopenia, unspecified location Take 1 tablet (70 mg total) by mouth every 7 days. 03/12/20 25 Active vitamin D3, cholecalciferol, 25 mcg capsuleIndication s:Low vitamin D level Take 5 capsules (5,000 Units total) by mouth daily. 03/12/20 25 Active vitamin D3, cholecalciferol, 25 MCG (1000 UT) capsuleIndication s:Low vitamin D level Take 1 capsule (1,000 Units total) by mouth daily. 90 capsule 3 05/02/20 21 2024 Discontinued Respiratory Therapy Supplies (SPIROMETER) KitIndications:Ri b fracture Use every hour while awake 1 kit 03/08/20 23 2024 Discontinued(E rror) nicotine polacrilex (NICORETTE) 2 MG gum Take 1 each (2 mg total) by mouth every 2 (two) hours. 2024 Discontinued(E rror) rosuvastatin (CRESTOR) 40 MG tabletIndications :Mixed hyperlipidemia TAKE 1 TABLET(40 MG) BY MOUTH DAILY 90 tablet 09/07/20 24 2024 Discontinued alendronate (FOSAMAX) 70 MG tabletIndications :Osteopenia, unspecified location Take 1 tablet (70 mg total) by mouth every 7 days. 12 tablet 02/08/20 25 2024 Discontinued PLAVIX 75 MG tablet Take 1 tablet (75 mg total) by mouth daily. 30 tablet 3 02/13/20 25 2024 Discontinued(S top Taking at Discharge) ibuprofen (MOTRIN) 600 MG tablet Take 1 tablet (600 mg total) by mouth every 8 (eight) hours as needed for Pain. 10 tablet 02/28/20 25 2024 Discontinued(S top Taking at Discharge) Active Problems Problem Noted Date Diagnosed Date S/P IVC filter 03/09/2025 Stenosis of left iliac artery 03/09/2025 Cigarette nicotine dependence without complicati on 03/09/2025 Hematoma 03/09/2025 Stenosis of common iliac artery 01/26/2025 Peripheral vascular disease 06/22/2024 B12 deficiency 11/22/2023 Folic acid deficiency 11/22/2023 Seizure ([facility]) 11/22/2023 Vasovagal syncope 03/10/2023 Alcohol dependence in remission ([facility] ) 03/10/2023 Family history of diabetes mellitus (DM) 023 Atopic dermatitis, unspecified type 12/30/2022 Osteopenia, unspecified location 05/02/2021 Neuropathy 07/21/2020 Closed nondisplaced fracture of proximal phalanx of right little finger, initial encounter 06/29/2019 History of common carotid artery stent placement 09/23/2018 Arthritis 08/29/2018 S/P appendectomy 03/20/2018 Low vitamin D level 03/15/2018 Hyperlipemia 10/08/2017 Atherosclerosis of coronary artery 09/16/2017 History of non-ST elevation myocardial infarctio n (NSTEMI) 09/05/2017 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[facility]) 09/05/2017 Tobacco dependence syndrome 09/05/2017 Carotid artery disease 05/18/2017 Post-menopausal 04/20/2017 Hypertension 04/13/2017 CVA, old, hemiparesis ([facility]) 03/30/20 12 TIA (transient ischemic attack) 03/29/2012 Resolved Problems Problem Noted Date Diagnosed Date Resolved Date Rib pain on right side 03/10/202311/22 Cutaneous abscess of face 12/30/2022 Rash and nonspecific skin eruption 12/30/2022 11/22/2023 AK (actinic keratosis) 12/24/202211/22 Colon cancer screening 05/02/202105/05 Body mass index (BMI) of 20. 0 to 20.9 in adult 05/02/2021 11/22/2023 Status post myocardial infarction 12/04/2017 11/22/2023 Encounters Date Type Department Care Team Description 03/21/[address] [address] Glory Jin FNP Information 03/13/[address] [address] Glory Jin FNP TCM 03/09/2025 1:12 PM CDT - 03/12/2025 10:51 AM CDT Hospital Encounter [facility] [place] [address] Pamela Morales FNP Jumean, Khaled, MD Crawford, Kye Garzon MD Groin Swelling (left) Discharge Disposition: Home or Self Care (Routine Discharge) 03/09/2025 10:40 AM CDT Office Visit [facility] Internal [address] [address] Glory Jin FNP TCM (Patient presenting to office today for TCM f/u- FAZAL - feeling and walking better - but would like the wound site to be evaluated because it does not look right per patient- stated its like a balloon under the skin ) 03/09/2025 Travel 03/02/2025 Telephone [facility] Internal [address] [address] Glory Jin FNP TCM 02/26/2025 7:31 AM CDT Anesthesia Event [facility] [place] [address] Haley Pineda MD Jackson, Samantha Rae, FNP 02/26/2025 7:30 AM CDT - 02/26/2025 10:23 AM CDT Surgery [facility] [place] [address] Marcos Fu MD ENDARTERECTOMY SUPERFICIAL FEMORAL ARTERY (LEFT LEG) WITH COMMON ILIAC ARTERIOGRAM (LEFT LEG) 02/26/2025 5:14 AM CDT - 02/27/2025 1:08 PM CDT Hospital Encounter [facility] [place] [address] Marcos Fu MD Discharge Disposition: Home or Self Care (Routine Discharge) 02/26/2025 Travel 02/12/2025 9:12 AM CDT Hospital Encounter [facility] [place] [address] Marcos Fu MD Discharge Disposition: Home or Self Care (Routine Discharge) 02/12/2025 9:12 AM CDT - 02/12/2025 11:00 AM CDT Hospital Encounter [facility] [address] Marcos Fu MD Discharge Disposition: Home or Self Care (Routine Discharge) 02/12/2025 Telephone [facility] [address] [address] Jean Gonzalez MD Refill Request (PLAVIX) 02/12/2025 Travel 01/29/2025 Telephone [facility] [address] [address] Jean Gonzalez MD Surgical Clearance 01/26/2025 Telephone [facility] [address] [address] Marcos Fu MD Surgical Clearance 01/26/2025 Prep for Procedure [facility] [address] [address] Marcos Fu MD 01/25/2025 3:00 PM CDT Office Visit [facility] [place] [address] Marcos Fu MD Follow Up 01/25/2025 Travel 01/17/2025 1:46 PM CDT - 01/17/2025 11:59 PM CDT Hospital Encounter [facility] [address] [place] [address] Marcos Fu MD Discharge Disposition: Home or Self Care (Routine Discharge) 01/17/2025 Travel from Last 3 Months Immunizations Immunization Administration Dates Next Due Fluzone 6 Months+ Quad (0.5 mL Prefilled Syringe) 11/22/2023,07/19/2020 Influenza Adult (Generic) 08/08/2022,09/29/2017 PFIZER COVID-19 (ORIGINAL FO RMULATION, PURPLE CAP) mRNA, LNP-S, PF, 30 MCG/0.3 ML DOSE 11/05/2021,02/05/2021,01/15/2021 Pneumococcal (Prevnar 20) 07/15/2022 Shingrix 07/17/2022 Tdap (Boostrix) 06/29/2019 Family History Medical History Relation Comments Diabetes Brother Heart Father Relation Status Comments Brother Father Mother Social History Tobacco Use Types Packs/Day Years Used Date Smoking Tobacco: Every Day Cigarettes 0.5 47.4 Started: 1977 Passive Smoke Exposure: Current Smokeless Tobacco: Never Tobacco Cessation:Ready to Q uit: No; Counseling Given: Yes Alcohol Use Standard Drinks/Week Comments Yes 46.7 (1 standard drink = 0.6 oz pure alcohol) [facility] Utilities Answer Date Recorded In the past 12 months has e [employer], gas, oil, or water [employer] threatened to shut off services in your [...] Frequency of Alcohol Consumption 2-3 times a wee k 09/23/2018 Average Number of Drinks Not on [...] any time in the past 12 m [facility], were you homeless or living in a group home (including now)? No 03/09/2025 Comments No Sex and Gender Information Value Date Recorded Sex Assigned at Female 11/23/2024 11:53 AM EXECUTIVE SECRETARY SOCIAL WELFARE Legal Sex Female 8:48 PM CDT Gender Identity Not on file Sexual Orientation Not on file Last Filed Vital Signs Vital Sign Reading Time Taken Comments Blood Pressure 144/65 03/12/2025 6:53 AM CDT Pulse 78 03/12/2025 6:53 AM CDT Temperature 36.7 C (98 F) 03/12/2025 6:53 AM CDT Respiratory Rate 17 03/12/2025 6:53 AM CDT Oxygen Saturation 93% 03/12/2025 6:53 AM CDT Inhaled Oxygen Concentration - - Weight 63.6 kg (140 lb 4.8 oz) 03/12/2025 3:46 A M CDT Height 165.1 cm (5' 5 ) 03/10/2025 11:38 AM CDT Body Mass Index 23.35 03/10/2025 11:38 AM CDT Plan of Treatment Upcoming Encounters Date Type Department Care Team (Late st Contact Info) Description 04/19/2025 11:30 AM CDT Office Visit [facility] [address] [place] [address] Marcos Fu MD [facility]. [address] [place] [address] 04/20/2025 1:30 PM CDT Office Visit [facility] [address] Jean Gonzalez MD [address] [facility] [address] [place] [address] 06/01/2025 9:00 AM CDT Office Visit [facility] Medical Group Multispecialty Care - [facility] [address] [facility], [address] [place] [phone] Sona Campos MD [address] [place] [address] Health Maintenance Due Date Last Done Comments Annual Physical 1968 Cervical Cancer Screening Pap Smear (Age 30 to 64) Every 3 Years 04/13/2020 04/13/2017 Cervical Cancer Screening Pap with HPV Testing (Age 30 to 64) Every 5 Years 04/13/2022 04/13/2017 ASCVD LDL 11/22/2024 11/22/2023, 09/0 04/2022, 05/02/2021, Additional history exists Mammogram Screening 12/24/2024 12/24/2022, 07/01/2021, 10/21/2018 Zoster Vaccines (2 of 2) 04/09/2025 07/17/2022 Pos tponed from 09/11/2022 (Future Appointment) RSV Immunization or 60+ Years (1 - Risk 60-74 years 1-dose series) 04/15/2025 Postponed fro m 2023 (Future Appointment) COVID-19 Vaccine ( season) 2026 11/05/2021, 02/05/2021, 01/15/2021 Postponed from 07/09/2024 (Patient Refused) Cervical Cancer Screening with HPV 03/09/2026 Postponed from 04/13/2020 (Future Appointment) Colorectal Cancer Screening Colonoscopy (10 Years) 03/09/2026 Postponed from 1965 (Future Appointment) DTaP, Tdap and Td Vaccines (2 - Td or Tdap) 06/29/2029 06/29/2019 Pneumococcal Vaccine: 50+ Years Completed 07/15/2022 Hepatitis C Completed 07/16/2022, 08/01/2020 PHQ-2 (Physician Stanton) Completed 03/09/2025 Meningococcal B Vaccine Aged Out No l onger eligible based on patient's age to complete this topic Meningococcal Vaccine Aged Out No kimberly prince eligible based on patient's age to complete this topic RSV Immunizations Under 20 Months Aged Out No longer eligible based on patient's age to complete this topic Goals Goal Patient Goal Type Associated Problems Recent Progress Patient-Stated? Author Health - patient able to perform ADLs independently Lifestyle No Li Salguero, RN Health - patient able to perform ADLs independently Lifestyle No Mari Monteiro, DIRECTOR EMBALMERoracle analyst Devices Implanted Type Area Process Control Specialist Device Identifier Shelf Expiration Date Model / Serial / Lot Patch Brigette. Vasc. Vascu-Guard 0.8cm X 8cm - [id number] Implanted:Qty: 1 on 02/26/2025 by Marcos Fu MD at [facility] Mesh Left: Groin [employer] - BIOSCIENCE 08/28/2026 [id number] / / [id number] Description:RIGHT FEMORAL AR NAKITA PATCH Procedures Procedure Name Priority Date/Time Associated Diagnosis Comments PHOSPHORUS, INORGANIC PHOSPHATE Routine 03/12/2025 6:23 AM CDT MAGNESIUM Routine 03/12/2025 6:23 AM CDT COMPREHENSIVE METABOLIC PANEL Routine 03/12/2025 6:23 AM CDT CBC W/DIFF AUTOMATED Routine 03/12/2025 6:23 AM CDT CTA AORTO ILIOFEM RUNOFF Routine 03/11/2025 8:24 AM CDT PHOSPHORUS, INORGANIC PHOSPHATE Routine 03/11/2025 7:08 AM CDT MAGNESIUM Routine 03/11/2025 7:08 AM CDT COMPREHENSIVE METABOLIC PANEL Routine 03/11/2025 7:08 AM CDT CBC W/DIFF AUTOMATED Routine 03/11/2025 7:08 AM CDT CBC W/DIFF AUTOMATED Routine 03/10/2025 7:51 AM CDT COMPREHENSIVE METABOLIC PANEL Routine 03/10/2025 7:51 AM CDT MAGNESIUM Routine 03/10/2025 7:51 AM CDT HEMOGLOBIN, GLYCOSYLATED Routine 03/10/2025 7:[address] PEL W CON STAT 03/09/2025 3:28 PM CDT USV PSEUDO ANEURYSM LOW LT STAT 03/09/2025 2:55 PM CDT COMPREHENSIVE METABOLIC PANEL STAT 03/09/2025 2:28 PM CDT CBC W/DIFF AUTOMATED STAT 03/09/2025 2:28 PM CDT CBC W/DIFF AUTOMATED Routine 02/27/2025 6:43 AM CDT BASIC METABOLIC PANEL Routine 02/27/2025 6:43 AM CDT BASIC METABOLIC PANEL Routine 02/26/2025 10:58 AM CDT SURG XR EXT ARTERIOGRAM LOW LT Routine 02/26/2025 10:20 AM CDT POCT ACTIVATED CLOTTING TIME - ISTAT DOCKED DEVICE Routine 02/26/2025 9:19 AM CDT POCT ACTIVATED CLOTTING TIME - ISTAT DOCKED DEVICE Routine 02/26/2025 8:49 AM CDT ART LINE PLACEMENT Routine 02/26/2025 7: 48 AM CDT ENDARTERECTOMY FEMORAL ARTERY 02/26/2025 7:30 AM CDT Stenosis of common iliac artery Case Notes SCHED BY MIGUEL ANGEL IN OFFICE 01/26/2025 LCS PRETEST 02/12/2025 @ 0930 PATHOLOGY Routine 02/26/2025 12:00 AM CDT XR CHEST PA+LAT Today 02/12/2025 10:51 AM CDT TYPE & SCREEN Routine 02/12/2025 10:12 AM CDT Stenosis of common iliac artery COMPREHENSIVE METABOLIC PANEL Routine 02/12/2025 10:12 AM CDT Stenosis of common iliac artery PROTHROMBIN TIME, VENOUS Routine 02/12/2025 10:12 AM CDT Stenosis of common iliac artery CBC W/DIFF AUTOMATED Routine 02/12/2025 10:12 AM CDT Stenosis of common iliac artery MRSA SCREENING Routine 02/12/2025 10:11 AM CDT Stenosis of common iliac artery CTA ABD+PEL Routine 01/17/2025 2:19 PM CDT Aortoiliac occlusive disease (CMS/HCC HHS/HCC) LIPID PANEL Routine 11/22/2023 11:55 AM EXECUTIVE SECRETARY [employer]IAL WELFARE Mixed hyperlipidemia Primary hypertension MAMMOGRAM GENERIC (SCAN ORDER) 12/24/2022 HEPATITIS PANEL,ACUTE 07/16/2022 11:30 AM CDT HPV, HUMAN PAPILLOMAVIRUS Routine 04/13/2017 9:00 AM CDT THINPREP IMAGING SYSTEM PAP Routine 04/13/2017 9:00 AM CDT from Last 3 Months or Most Recently Relevant to Health Maintenance Results * (ABNORMAL) COMPREHENSIVE METABOLIC PANEL (03/12/2025 6:23 AM CDT) Only the most recent of5 resultswithin the time period is included. GLUCOSE 98 70 - 99 MG/DL 03/12/2025 7:54 AM CDT [facility] BUN 3(L) 7 - 18 MG/DL 03/12/2025 7:54 AM CDT [facility] CREATININE S/P/B 0.41(L) 0.55 - 1.02 MG/DL 03/12/2025 7:54 AM CDT [facility] SODIUM S/P/B 135(L) 136 - 145 MMOL/L 03/12/2025 7:54 AM CDT [facility] POTASSIUM S/P/B 3.8 3.5 - 5.1 MMOL/L 03/12/2025 7:54 AM CDT [facility] CHLORIDE S/P/B 107 97 - 115 MMOL/L 03/12/2025 7:54 AM T [facility] CO2 22.0 21 - 32 MMOL/L 03/12/2025 7:54 AM T [facility] CALCIUM S/P/B 8.9 8.5 - 10.1 MG/DL 03/12/2025 7:54 AM T [facility] BILIRUBIN TOTAL S/P/B 0.7 0.2 - 1.2 MG/DL 03/12/2025 7:54 AM T [facility] Comment: THIS ASSAY IS NOT RECOMMENDED FOR PATIENTS UNDERGOING TREATMENT WITH ELTROMBOPAG DUE TO THE POTENTIAL FOR FALSELY ELEVATED RESULTS. TOTAL PROTEIN S/P/B 7.4 6.4 - 8.2 G/DL 03/12/2025 7:54 AM T [facility] ALBUMIN S/P/B 2.9(L) 3.4 - 5.0 G/DL 03/12/2025 7:54 AM T [facility] AST 56(H) 15 - 37 U/L 03/12/2025 7:54 AM T [facility] ALT 40 14 - 55 U/L 03/12/2025 7:54 AM T [facility] ALKALINE PHOSPHATASE S/P/B 136 50 - 136 U/L 03/12/2025 7:54 AM T [facility] ANION GAP 6.0 2 - 10 MMOL/L 03/12/2025 7:54 AM T [facility] BUN CREATININE RATIO 7.4 6 - 26 03/12/2025 7:54 AM T [facility] A/G RATIO 0.6(L) 1.0 - 2.0 RATIO 03/12/2025 7:54 AM T [facility] GFR ESTIMATE >90 >90 ML/MIN/1.7 3 M2 03/12/2025 7:54 AM CDT [facility] Comment: NOTE: eGFR is not calculated for patients <18 years of age or gender unknown. This is an estimated GFR calculation using the new CKD EPI creatinine equation without race and so does not require a correction factor for race. This estimated GFR should not be used for calculating drug doses. 03/12/2025 6:23 AM CDT us Kye Corrigan MD LABORATORY Final Result [facility] [address] [place] [address], * (ABNORMAL) CBC W/DIFF AUTOMATED (03/12/2025 6:23 AM CDT) Only the most recent of6 resultswithin the time period is included. WBC 8.05 4.5 - 11.0 x10'3/uL 03/12/2025 7:27 AM CDT [facility] RBC 3.52(L) 4.20 - 5.40 x10'6/uL 03/12/2025 7:27 AM CDT [facility] HGB 11.3(L) 12.0 - 16.0 G/DL 03/12/2025 7:27 AM CDT [facility] HCT 33.8(L) 38.0 - 48.0 % 03/12/2025 7:27 AM CDT [facility] MCV 96.0 81.0 - 99.0 FL 03/12/2025 7:27 AM CDT [facility] MCH 32.1(H) 27.0 - 31.0 PG 03/12/2025 7:27 AM CDT [facility] MCHC 33.4 32.0 - 36.0 G/DL 03/12/2025 7:27 AM CDT [facility] RDW 13.5 11.5 - 14.5 % 03/12/2025 7:27 AM CDT [facility] PLT 134 130 - 400 x10'3/uL 03/12/2025 7:27 AM CDT [facility] MPV 11.0 9.3 - 12.2 FL 03/12/2025 7:27 AM CDT [facility] DIFFERENTIAL TYPE AUTOMATED DIFFERENTIAL 03/12/2025 7:27 AM CDT [facility] NEUTROPHILS % 58.9 % 03/12/2025 7:27 AM CDT [facility] LYMPHOCYTES % 27.1 % 03/12/2025 7:27 AM CDT [facility] MONOCYTES % 10.1 % 03/12/2025 7:27 AM CDT [facility] EOSINOPHILS 2.7 % 03/12/2025 7:27 AM CDT [facility] BASOPHILS 1.0 % 03/12/2025 7:27 AM CDT [facility] IMMATURE GRANS % 0.2 % 03/12/20 7:27 AM CDT [facility] ABS. NEUTROPHILS 4.74 1.80 - 7.70 x10'3/uL 03/12/2025 7:27 AM CDT [facility] ABS. LYMPHOCYTES 2.18 1.00 - 4.80 x10'3/uL 03/12/2025 7:27 AM CDT [facility] ABS. MONOCYTES 0.81 0.24 - 0.86 x10'3/uL 03/12/2025 7:27 AM CDT [facility] ABS. EOSINOPHILS 0.22 0.04 - 0.36 x10'3/uL 03/12/2025 7:27 AM CDT [facility] ABS. BASOPHILS 0.08 0.01 - 0.08 x10'3/uL 03/12/2025 7:27 AM CDT [facility] ABS. IMMATURE GRANULOCYTES 0.02 0.00 - 0.49 x10'3/uL 03/12/2025 7:27 AM CDT [facility] 03/12/2025 6:23 AM CDT Kye Corrigan MD LABORATORY Final Result [facility] [address] [place] [address], [place] [phone] * PHOSPHORUS, INORGANIC PHOSPHATE (03/12/2025 6:23 AM CDT) Only the most recent of2 resultswithin the time period is included. PHOSPHORUS 3.0 2.5 - 4.9 MG/DL 03/12/2025 7:54 AM CDT [facility] 03/12/2025 6:23 AM CDT Kye Corrigan MD LABORATORY Final Result [facility] [address] [place] [id number], [place] [phone] * MAGNESIUM (03/12/2025 6:23 AM CDT) Only the most recent of3 resultswithin the time period is included. MAGNESIUM 2.0 1.8 - 2.4 MG/DL 03/12/2025 7:54 AM CDT [facility] 03/12/2025 6:23 AM CDT Kye Corrigan MD LABORATORY Final Result [facility] [address] [place] [address], * CTA AORTO ILIOFEM RUNOFF (03/11/2025 8:24 AM CDT) Anatomical Region Laterality Modality Abdomen, Pelvis, Extremity Compu leah Tomography 03/20/2025 2:14 PM CDT Impressions 03/20/2025 2:56 PM CDT IMPRESSION: 1. Roughly 5 cm lobulated fluid collection surrounding the left common femoral artery, most likely subacute hematoma, showing little change in size or configuration compared to 2 days prior. There is associated occlusion of the superficial femoral artery about 1 cm beyond its origin, reconstituted in the proximal thigh via profunda branches. 2. Severe distal aortic stenosis secondary to heavily calcified plaque which also extends into the left common iliac artery, resulting in severe stenosis of the proximal left common iliac. 3. Moderate right common femoral stenosis and focal severe calcific stenosis of the right superficial femoral artery origin. SFA origin stenosis may potentially be overestimated by CT due to blooming artifact. 4. Additional moderate stenoses of the femoral, popliteal, and tibial arteries as detailed above. Two-vessel runoff to each foot. 5. No acute nonvascular findings. Ordered By: EUNICE MORTENSEN Electronically Signed By [id number]|2025-03-26 07:39:00|2025-03-26 07:38:00|XMS_ITS|BKG DAEMON|External Medical Summaries|[id number]|" Encounter Summary Created on: March 26, 2025 Lise Morgan : 1965 Sex: Female Author Organization [facility] Address [address] [place] [id number] Care Team Providers Care Machine Adjuster Helper Name Role Phone Glory Jin Primary Care Provider [phone] Jean Gonzalez MD Unavailable [phone] Sona Campos MD Unavailable [phone] Encounter Details Date Type Department Care Team (Late Contact Info) Description 11/06/2024 Prep for Procedure [facility] [address] [place], [place] [id number] Marcos Fu MD [facility]. [address] [place], [place] [id number] Social History Tobacco Use Types Packs/Day Years Used Date Smoking Tobacco: Every Day Cigarettes 0.5 40 Passive Smoke Exposure: Current Smokeless Tobacco: Current Comments:The provider can pr ovide you with information to quit smoking 01/06/24 Alcohol Use Standard Drinks/Week Comments Not Currently 0 (1 standard drink = 0.6 oz pure alcohol) 2 x week quit drinking 04/2024 AUDIT-C Answer Date Recorded Frequency of Alcohol Consumption 2-3 times a wee k 09/23/2018 Average Number of Drinks Not on file 018 Frequency of Binge Drinking Not on file 09/08 PHQ-2 Answer Date Recorded Patient Health Questionnaire-2 Score 0 11/22/2023 Comments No Sex and Gender Information Value Date Recorded Sex Assigned at Female 11/23/2024 11:53 AM EXECUTIVE SECRETARY [employer] W[employer] Legal Sex Female 8:48 PM CDT Gender Identity Not on file Sexual Orientation Not on file documented as of this encounter Plan of Treatment Upcoming Encounters Date Type Department Care Team (Late Contact Info) Description 04/19/2025 11:30 AM CDT Office Visit [facility] [address] [place], [place] [phone] Marcos Fu MD [facility]. [address] [place], [place] [id number] 04/20/2025 1:30 PM CDT Office Visit [facility] [address] [place] [phone] Jean Gonzalez MD [address] [facility] [address] [place] [address] 06/01/2025 9:00 AM CDT Office Visit [facility] Medical Group Multispecialty Care - [facility] [address] [facility], [address] [place] [address] Sona Campos MD [address] [place] [address] documented as of this encounter Visit Diagnoses Not on filedocumented in this encounter Additional Health Concerns Assessment Noted Time PHQ-9 Depression Total Score: 0 11/22/19 24 11:12 AM [employer] documented as of this encounter Care Teams Machine Adjuster Helper Relationship Specialty Start Date End Date Glory Jin FNP [address] [place] [id number] PCP - General NURSE PRACTITIONER 08/20/18 Jean [address] MD [address] [facility] [address] [place] [address] Consulting Physician CARDIOVASCULAR DISEASE 02/12/25 Sona Campos MD [address] [place] [address] Consulting Physician NEUROLOGY 02/12/25 documented as of this encounter "
--- OUTSIDE RECORDS SUMMARY | 2025-03-26 07:38 | XMS_ITS | Data Portability ---
Author Organization [place] - [facility] OFFICE Address [address] [place] [id number] Care Team Providers Care Instructor Robotics Name Role Phone COLBY GREEN Primary Care Provider Assessment Encounter Date Assessment Date Assessment LastModified by Organization Details LastModified Time 04/09/2023 04/09/2023 Patient Examined by NATY Sandoval, Also Documentation reviewed and approved by supervising physician danielle Not available 04/09/2023 10:47:27 07/06/2023 07/06/2023 Patient Examined by NATY Sandoval, Also Documentation reviewed and approved by supervising physician deya Not available 07/04/2023 17:29:47 09/15/2023 09/15/2023 Patient Examined by NATY Sandoval, Also Documentation reviewed and approved by supervising physician deya Not available 09/11/2023 11:56:30 Plan of Treatment Reminders Order Date Submit Date Provider Last Modified By Organization Details Last Modified Time Details Appointments None recorded. Lab None recorded. Referral None recorded. Procedures None recorded. Surgeries None recorded. Imaging None recorded. Medication Orders metoprolol tartrate 25 mg tablet 2022 023 [facility] #[id number], [address], [place], [id number], 11:44:12 rosuvastati n 40 mg tablet 2022 023 [facility] #[id number], [address], [place], [id number], 3 15:24:29 Plavix 75 mg tablet 2022 023 [facility] #48502, [address] [facility], [place], [place], [phone], 3 11:44:13 nicotine (polacrilex ) 2 mg gum 2022 023 [facility] #94284, [address], [place], [id number], 3 10:54:50 Plavix 75 mg tablet 2022 023 [facility] #48255, [address] [facility], [place], [place], [phone], 10:54:50 Patient TargetsNo targets recorded. Patient Instructions Encounter Date Encounter Id Patient Instructions Last Modified By Organization Details Last Modified Time 08/11/2022 [id number] Advised against smoking Exercise advised Low cholesterol diet advised Low sodium diet advised. [email or web address] Not available 08/11/2022 09:53:18 02/09/2023 [id number] Advised against smoking Exercise advised Low cholesterol diet advised Low sodium diet advised. [email or web address] Not available 02/09/2023 10:34:11 04/09/2023 [id number] Quitting Tobacco: Care Instructions eyassin Not available 04/09/2023 10:54:35 Quitting Tobacco: Care Instructions eyassin Not available 04/09/2023 10:54:35 Advised against smoking Exercise advised Low cholesterol diet advised Low sodium diet advised. eyassin Not available 04/09/2023 10:53:27 07/06/2023 [id number] Advised against smoking Exercise advised Low cholesterol diet advised Low sodium diet advised. eyassin Not available 07/06/2023 11:42:29 09/15/2023 [id number] Low cholesterol diet advised Low sodium diet advised. eyassin Not available 09/15/2023 14:36:11 Reason for Referral None Reported. Results Created Date Observation Date Name Description Value Unit Range Abnormal Flag Note LastModifiedBy Organization Detail LastModifiedTime 09/09/2009/04/2022 exerc ise stres s test No observ ation record ed. Not Available 2021 15:15:09 01/27/2001/19/2023 CT, angio gram, chest + abdom en, w/wo contr ast No observ ation record ed. esto [facility] [address], [place], [address], 01/27/2023 05:02:04 03/31/2003/23/2023 US, carot id arter y No observ ation record ed. Not Available 2022 11:10:10 04/13/2004/09/2023 elect bishop [email or web address] am No observ ation record ed. Not Available 2022 17:23:29 06/01/20 23 05/10/2023 event monit or No observ ation record ed. Not Available 2022 13:05:34 08/30/20 23 07/22/2023 US, carot id arter y No observ ation record ed. Not Available 2022 10:12:21 Result Notes Documentation Provider Name and Address Organization Details Recorded Time Ct, Angiogram, Chest + Abdomen, W/wo Contrast : CT Lung 01/19/23:Atheroscerotic calcification with likely severe stenosis at the inniminate artery,could consider carotid CT angiogram for further evaluation. Ramin jara [place] - [facility] 01/27/2023 05:02:04 Lipid Panel, Blood : 04/16/23:TC 166,TG 53,LDL 107,HDL 48.AST 46,ALT 32,CK 94. Ramin jara [facility] 04/22/2023 17:44:31 Lipid Panel, Blood : 04/15/23:TC 166,TG 53,LDL 107,HDL 48. Ramin jara [place] [facility] 04/23/2023 11:53:05 Cmp, Serum Or Plasma : 04/15/23:TC 166,TG 53,LDL 107,HDL 48. Ramin jara [place] [facility] 04/23/2023 11:53:05 Problems Name Problem SNOMED Code Status Onset Date Resolution Date Notes Provider Name and Address Organization Details Recorded Time Chest pain 13838617 Active 2016 Tong Tang [facility] 7 00:05:26 High troponin I level 726721871 Active 2016 [facility] 7 00:05:44 Acute non-ST segment elevation myocardial infarction 649795200 Active 2016 [facility] 7 00:07:17 Essential hypertensi on 95951032 [facility] 7 00:07:28 Cerebrovas cular accident 256696334 Active 2016 [facility] 7 00:07:34 Tobacco dependence syndrome 15892693 Active 2016 Tong Jacoboabi 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 7 00:09:19 Carotid artery stenosis 43281869 Active 2016 Faustin Ledyeric [facility] 7 07:06:57 Coronary arterioscl erosis 78293856 Active 2016 [facility] 09/01/17: 3-Vessel coronary left main disease and RCA disease as well as circumflex and LAD disease,no rmal LV systolic function. Ramin Siddiqui [facility] 7 12:52:26 Dyslipidem ia 034537445 Active 2017 Ramin Siddiqui [facility] 8 11:30:55 Peripheral vascular disease 792677303 Active 2017 Ramin Siddiqui [facility] 8 16:50:12 Notes:stent placement Problem Notes None recorded. Procedures Surgical History Date Name Laterality Status Provider Name and Address Organization Details Recorded Time 09/02/2017 Cabg vein three completed Li Caal [place] - [facility] 09/20/2017 17:58:37 Imaging Results Imaging Date Name Status LastModified by Organization Details LastModified Time 09/04/2022 exercise stress test completed Info rmation not available 09/09/2022 15:15:09 01/19/2023 CT, angiogram, chest + abdomen, w/wo contrast completed esto [facility] [address], [place], [address], 01/27/2023 05:02:04 03/23/2023 US, carotid artery completed Inform ation not available 03/31/2023 11:10:10 04/09/2023 electrocardiogram completed Informa tion not available 04/13/2023 17:23:29 05/10/2023 event monitor completed Information not available 06/01/2023 13:05:34 07/22/2023 US, carotid artery completed Inform ation not available 08/30/2023 10:12:21 Procedure Notes None recorded. Medical Equipment None Reported. Allergies No known drug allergies Medications Name Sig Start Date Stop Date Status Note LastModified by Organization Details LastModified Time cyclobenz aprine 10 mg tablet active Not Available Not Available No t Available atorvasta tin 40 mg tablet TAKE 1 TABLET BY MOUTH EVERY DAY 05/13 completed Not Available Not Available Not Available atorvasta tin 20 mg tablet TAKE 1 TABLET BY MOUTH EVERY DAY 07/21 completed Not Available Not Available Not Available atorvasta tin 10 mg tablet bid 01/04 completed 2 tab qhs Not Available Not Available Not Available ibuprofen 800 mg tablet TAKE 1 TABLET BY MOUTH THREE TIMES DAILY NEEDED FOR PAIN 02/09 completed pt is no longer taking 02/10/22 SA Not Available Not Available Not Available nicotine (polacril ex) 2 mg gum CHEW 1 PIECE OF GUM EVERY 2 HOURS NEEDED active Not Available Not Available No t Available metoprolo l succinate ER 50 mg tablet,ex tended release 24 hr Take 1 tablet twice a day by oral route as directed . 05/14 completed Not Available Not Available Not Available levetirac etam 500 mg tablet TAKE 1 TABLET BY MOUTH TWICE DAILY active Not Available Not Available No t Available hydrocodo ne 5 mg-acetam inophen 325 mg tablet TAKE 1 TABLET BY MOUTH EVERY 6 HOURS NEEDED FOR PAIN active Not Available Not Available No t Available lisinopri l 20 mg tablet 09/20 completed Not Available Not Available Not Available alendrona te 70 mg tablet TAKE 1 TABLET BY MOUTH ONCE A WEEK, DIRECTED active Not Available Not Available No t Available Plavix 75 mg tablet Take 1 tablet(s ) every day by oral route. active Not Available Not Available No t Available sulfameth oxazole 800 mg-trimet hoprim 160 mg tablet TAKE 1 TABLET BY MOUTH TWICE DAILY FOR 7 DAYS 07/06 completed Not Available Not Available Not Available tramadol 50 mg tablet four times a day active Not Available Not Available No t Available ondansetr on 8 mg disintegr ating tablet DISSOLVE 1 TABLET ON THE TONGUE EVERY 8 HOURS NEEDED FOR NAUSEA OR VOMITING 08/11 completed pt is no longer taking 02/10/22 SA Not Available Not Available Not Available cephalexi n 500 mg capsule TAKE 1 CAPSULE BY MOUTH EVERY 12 HOURS 07/06 completed Not Available Not Available Not Available oseltamiv ir 75 mg capsule 01/04 completed Not Available Not Available Not Available triamcino lone acetonide 0.1 % topical ointment APPLY TOPICALL Y TO THE AFFECTED AREA TWICE DAILY active Not Available Not Available No t Available lisinopri l 10 mg tablet 1qd active Not Available Not Available Not Available aspirin 81 mg chewable tablet Chew 1 tablet every day by oral route. active Not Available Not Available No t Available lisinopri l 5 mg tablet TAKE 1 TABLET BY MOUTH EVERY DAY 09/03 completed pt not taking 09/03/20 Not Available Not Available Not Available ibuprofen 600 mg tablet 07/21 completed Not Available Not Available Not Available levofloxa oscar 750 mg tablet 06/21 completed Not Available Not Available Not Available methylpre dnisolone 4 mg tablets in a dose pack FOLLOW PACKAGE DIRECTIO NS 02/09 completed Not Available Not Available Not Available lisinopri l 2.5 mg tablet Take 2 tablets every day by oral route as directed . 09/03 completed pt not taking 09/03/20 Not Available Not Available Not Available naproxen 500 mg tablet 07/21 completed Nolonger take it 01/17/19 : MA Not Available Not Available Not Available Tylenol 650 mg tablet,ex tended release Take 1 tablet every 4 hours by oral route as directed . 01/04 completed Not Available Not Available Not Available Vitamin B1 100 mg tablet Take 1 tablet every day by oral route. 09/11 completed Not Available Not Available Not Available rosuvasta tin 20 mg tablet TAKE 1 TABLET BY MOUTH EVERY DAY AT BEDTIME 09/11 completed Not Available Not Available Not Available rosuvasta tin 40 mg tablet TAKE 1 TABLET BY MOUTH EVERY DAY active Not Available Not Available No t Available metoprolo l tartrate 25 mg tablet TAKE 1 TABLET BY MOUTH TWICE DAILY DIRECTED 2023 active Not Available Not Available Not Avai lable nitrofura ntoin monohydra te/macroc rystals 100 mg capsule 07/06 completed Not Available Not Available Not Available Vitamin B-12 1qd 09/11 completed Not Available Not Available Not Available Plavix 75 mg daily 2022 active Not Available Not Available Not Avai lable Heparin Sodium 250ml q 24 hr IV 09/20 completed Not Available Not Available Not Available Vitamin D 5,000 unit tablet Take 1 tablet every day by oral route as directed . 09/11 completed Not Available Not Available Not Available Stimulant Laxative Plus 8.6 mg-50 mg tablet TAKE 1 TABLET BY MOUTH EVERY NIGHT AT BEDTIME 07/06 completed Not Available Not Available Not Available Vitamin B12 05/13 completed Not Available Not Available Not Available Vitals Date Recorded Body height Body mass index (BMI) Body weight Heart rate Respiratory rate Oxygen saturation Oxygen saturation in Arterial blood by Pulse oximetry Systolic blood pressure Diastolic blood pressure Provider Name and Address Organization Details Last Updated DateTime 2 167.64 cm 21.8 kg/m2 76877.9 7 g 84 /min 16 /min 95 % 95 % 132 mm[Hg] 84 mm[Hg] Janes EMERSON - [facility] 2 09:34:13 Date Recorded Body height Body mass index (BMI) Body weight Heart rate Respiratory rate Oxygen saturation Oxygen saturation in Arterial blood by Pulse oximetry Systolic blood pressure Diastolic blood pressure Provider Name and Address Organization Details Last Updated DateTime 3 167.64 cm 22.9 kg/m2 70069.1 2 g 97 /min 18 /min 99 % 99 % 126 mm[Hg] 84 mm[Hg] Janes Abebe [facility] 3 10:13:33 Date Recorded Body height Body mass index (BMI) Body weight Oxygen saturation Oxygen saturation in Arterial blood by Pulse oximetry Heart rate Systolic blood pressure Diastolic blood pressure Provider Name and Address Organization Details Last Updated DateTime 3 167.64 cm 22.8 kg/m2 98978.8 8 g 99 % 99 % 93 /min 158 mm[Hg] 98 mm[Hg] HIRA RIVERA [facility] 3 10:14:18 Date Recorded Body height Body mass index (BMI) Body weight Heart rate Respiratory rate Oxygen saturation Oxygen saturation in Arterial blood by Pulse oximetry Systolic blood pressure Diastolic blood pressure Provider Name and Address Organization Details Last Updated DateTime 3 167.64 cm 22.9 kg/m2 81601.1 2 g 92 /min 16 /min 98 % 98 % 148 mm[Hg] 86 mm[Hg] Janes Abebe [facility] 3 11:23:26 Date Recorded Body height Body mass index (BMI) Body weight Heart rate Oxygen saturation Oxygen saturation in Arterial blood by Pulse oximetry Systolic blood pressure Diastolic blood pressure Provider Name and Address Organization Details Last Updated DateTime 3 167.64 cm 22.4 kg/m2 52955.3 4 g 97 /min 96 % 96 % 150 mm[Hg] 91 mm[Hg] Estelle Cervantes [facility] 3 14:11:26 Social History Question Answer Notes LastModified by Organizat ion Details LastModified Time Tobacco Smoking Status Former Smoker Not Available [facility]/10/2020 03:30:42 What Is Your Level Of Caffeine Consumption? Moderate [id number] Information not available 09/10/2020 How Much Tobacco Do You Chew? None [id number] Information not available 09/10/2020 What Type Of Diet Are You Following? SPECIFIC [id number] Information not available 09/10/2020 Marital Status [email or web address] Petersen n not available 09/20/2017 What Was The Date Of Your Most Recent Tobacco Screening? 06/21/2018 [id number] Information not available 09/10/2020 How Many Children Do You Have? 2 [id number] Information not available 09/10/2020 How Much Tobacco Do You Smoke? No [id number] Information not available 09/10/2020 Sex: Unknown Functional Status Question Answer Note LastModified by Organizat ion Details LastModified Time What is your level of alcohol consumption? Moderate [id number] Information not available 09/10/2020 Do you or have you ever used smokeless tobacco? 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 Former user of electronic cigarettes [id number] Information not available 09/10/2020 What is your exercise level? Occasional [id number] Information not available 09/10/2020 Mental Status None recorded. Family History Relationship Description Onset Age of this Age Resolved Age Notes LastModified by Organization Details LastModified Time Father Myocardial infarction dece ed [email or web address] Not available 09/11/2017 06:54:11 Father Congestive heart failure dece ed hmesto Not available 09/11/2017 06:54:23 Father Chronic obstructive pulmonary disease dece ed esto Not available 09/11/2017 06:54:15 Father Diabetes mellitus dece ed esto Not available 09/11/2017 06:54:46 Father Hypertensive disorder dece ed esto Not available 09/11/2017 06:55:27 Brother Diabetes mellitus esto Not available 2016 06:55:04 Mother Septic shock [email or web address] Not availab le 09/11/2017 06:55:39 Notes:premature [place] Medical History Condition Response Carotid Disease Y Coronary Artery Disease Y Myocardial Infarction Y Hyperlipidemia Y Stroke Y Hypertension Y Gynecological HistoryNo gynecological history recorded. Obstetrics History GPAL:G 0 P 0 0 0 0 Past Encounters Encounter ID Performer Location Encounter Start Date Encounter Closed Date Diagnosis/Indication Diagnosis SNOMED-CT Code Diagnosis ICD10 Code Diagnosis Note [id number] J Carlos Liu MD [facility] [address] [place] [address] 09/20/2017 17:39:13 09/21/2017 11:59:57 Tobacco dependence syndrome 80007682 F17.200 Quit Carotid ar dominick stenosis 40487010 I65.29 Cerebrovas cular accident 439484907 I63.9 Essential hypertension 02124048 I10 Now well controlled Dyslipidemia 957651863 E 78.5 Needs to keep LDL less than 70, and HDL more than 40Will get fating lipids for follow up Coronary arteriosclerosis in [place] artery 6616900175 107 I25.10 s/[facility] [place] [id number] J Carlos Liu MD [facility] [place] [address] 01/04/2018 09:57:57 01/04/2018 16:56:47 Essential hypertension 62560907 I10 Will increase Lisinopril to 5 mg po qd Tobacco de pendence syndrome 25867329 F17.200 Quit 2017 Carotid ar dominick stenosis 70582572 I65.29 Cerebrovas cular accident 202632078 I63.9 Dyslipidemia 824643386 E 78.5 Needs to keep LDL less than 70, and HDL more than 401 LDL 49 Coronary arteriosclerosis in [place] artery 6099223002 107 I25.10 s/p CABGDid not completed Cardiac rehab at [place] Peripheral vascular disease 653432557 I73.9 Will get arterial doppler, to evaluate severity of peripheral vascular disease [id number] J Carlos Liu [facility] [place] [address] 06/21/2018 10:30:25 11/10/2018 16:14:03 Essential hypertension 65716191 I10 Well controlled . Tobacco de pendence syndrome 20938437 F17.200 Quit 2017. Smokes an E-ciggaret te. Carotid ar dominick stenosis 90098684 I65.29 On ASA. Follows a vascular surgeon in [facility]. [place] Plavix Cerebrovas cular accident 058231278 I63.9 On ASA 81. Dyslipidemia 407772509 E 78.5 Needs to keep LDL less than 70, and HDL more than 4010/2017 LDL 49 Coronary arteriosclerosis in [place] artery 8298625602 107 I25.10 s/p CABG 2017 Peripheral vascular disease 107146460 I73.9 Will get arterial doppler, to evaluate severity of peripheral vascular disease [id number] J Carlos Liu MD [facility] [place] [address] 01/17/2019 10:55:23 01/17/2019 12:26:33 Essential hypertension 40908116 I10 Well controlled . Dyslipidemia 855280377 E 78.5 Needs to keep LDL less than 70, and HDL more than LDL 49 Tobacco de pendence syndrome 95092562 F17.200 Quit 2017. Carotid ar dominick stenosis 99704178 I65.29 On ASA. Follows a vascular surgeon in [place]. Cerebrovas cular accident 327722888 I63.9 On ASA 81. Coronary arteriosclerosis in [place] artery 3638684154 107 I25.10 s/p CABG 2017 Peripheral vascular disease 462825313 I73.9 Will get arterial doppler, to evaluate severity of peripheral vascular disease [id number] J Carlos Liu MD [facility] [place] [address] 07/21/2019 11:06:51 07/24/2019 00:48:14 Essential hypertension 36947263 I10 Blood pressure is elevated today, (in pain due to recent fracture of R 5th digit) but this is only one reading, will keep close follow up, and consider medication change if blood pressure is still elevated next visit. Dyslipidemia 496131037 E 78.5 Needs to keep LDL less than 70, and HDL more than LIPID: TC 199, TR 54, HDL 77, LDL 111LDL is not at goal. Will increase Atorvastat in to 40mg daily. Tobacco de pendence syndrome 51474487 F17.200 Quit 2017. Carotid ar dominick stenosis 41554937 I65.29 On ASA. s/p stent. Follows a vascular surgeon in [place]. Cerebrovas cular accident 229849038 I63.9 On ASA 81. Coronary arteriosclerosis in [place] artery 8644156979 107 I25.10 s/p CABG 2017.Now with dyspnea on exertionTr eadmill Myoview Stress test, has high Greenway Risk score. Has Known CAD, or CAD risk equivalent . To look for any ischemia. [id number] J Carlos Liu MD [facility] [address] [place] [address] 08/29/2019 09:54:10 08/29/2019 12:04:18 Coronary arteriosclerosis in [place] artery 6575398035 107 I25.10 s/p CABG 2017.Now with dyspnea on exertionTr eadmill Myoview Stress test abnormal.W ill arrange for cardiac CTA, he has high Greenway Risk score. he would benefit from CT to look for any Coronary Artery Disease Essential hypertension 55507805 I10 Blood pressure is elevated today, but this is only one reading, will keep close follow up, and consider medication change if blood pressure is still elevated next visit. Dyslipidemia 903434540 E 78.5 Needs to keep LDL less than 70, and HDL more than LIPID: TC 199, TR 54, HDL 77, LDL 111Increas ed Lipitor to 40 mg (07/2019). Will obtain fasting lipids for follow up. Tobacco de pendence syndrome 43083769 F17.200 Quit 2017. Carotid ar dominick stenosis 51041822 I65.29 On ASA. s/p stent. Was followed by a vascular surgeon in [facility] for 5 years, now discharged from follow up. Cerebrovas cular accident 191664167 I63.9 On ASA 81. [id number] J Carlos Liu MD [facility] [place] [address] 03/05/2020 08:52:29 03/05/2020 15:07:35 Coronary arteriosclerosis in [place] artery 6642153767 107 I25.10 s/p CABG 2017. 08/17/19 TDM: Positive stress test. Reversible defect consistent with ischemia in septal area. Normal LV systolic function. LVEF 66% Cardiac CTA 09/18/19:P atent PRITCHETT to LAD,Patent SVG to OM,Patent SVG to PDA,Normal ventricula r function,E F of 66%. Maximal medical treatment Essential hypertension 55375684 I10 Dyslipidemia 117547419 E 78.5 Needs to keep LDL less than 70, and HDL more than LIPID: TC 199, TR 54, HDL 77, LDL 111Increas ed Lipitor to 40 mg (07/2019). Will obtain fasting lipids for follow up. Tobacco de pendence syndrome 30239764 F17.200 Quit 2016. Carotid ar dominick stenosis 97098501 I65.29 s/p stent. Was followed by a vascular surgeon in [facility] for 5 years, now discharged from follow up. Cerebrovas cular accident 433091042 I63.9 On ASA 81. [id number] J Carlos Liu MD [facility] [address] [place] [address] 09/03/2020 09:01:17 09/03/2020 10:00:26 Coronary arteriosclerosis in [place] artery 1613625503 107 I25.10 09/03/2020 Denies symptoms at this time.s/p CABG 2017. 08/17/19 TDM: Positive stress test. Reversible defect consistent with ischemia in septal area. Normal LV systolic function. LVEF 66% Cardiac CTA 09/18/19:P atent PRITCHETT to LAD,Patent SVG to OM,Patent SVG to PDA,Normal ventricula r function,E F of 66%. Maximal medical treatment Essential hypertension 41780987 I10 09/03/20El evated today in the office. Her PCP increased her lisinopril to 10mg since last visit.BP check in two weeks. Dyslipidemia 615383946 E 78.5 09/03/2020 Obtain fasting lipids.Nee ds to keep LDL less than 70, and HDL more than : TC 193 ,TG 58 ,HDL 82 ,LDL 99 ,CK 56Increase d Lipitor to 40 mg (07/2019). Will obtain fasting lipids for follow up. Tobacco de pendence syndrome 37169477 F17.200 09/03/2020 Smokes 1/2 ppd Carotid ar dominick stenosis 66750130 I65.29 09/03/2020 Had Carotid US done in 05/14/20 showed Antegrade flow noted in both vertebral arteries. Mild bilateral internal carotid artery stenosis with less than 50% diameter stenosis. Patent right ICA stent.s/p stent. [facility] [place] for 5 years, now discharged from follow up. Cerebrovas cular accident [id number] I63.9 09/03/2020 On ASA 81. Had Carotid US done in 05/14/20 showed Antegrade flow noted in both vertebral arteries. Mild bilateral internal carotid artery stenosis with less than 50% diameter stenosis. Patent right ICA stent. Alcohol dependence 11435 003 F10.20 09/03/2020 Drinks 24 pack per week. 11626 J Carlos Liu MD [facility] [address] [place] [address] 02/11/2021 10:00:31 02/11/2021 11:13:18 Coronary arteriosclerosis in [place] artery [id number] I25.10 Denies symptoms at this time. s/p CABG 2017. 08/17/19 TDM: Positive stress test. Reversible defect consistent with ischemia in septal area. Normal LV systolic function. LVEF 66% Cardiac CTA 09/18/19:P atent PRITCHETT to LAD,Patent SVG to OM,Patent SVG to PDA,Normal ventricula r function,E F of 66%. Maximal medical treatment Essential hypertension [id number] I10 Controlled today. Dyslipidemia [id number] E 78.5 Obtain fasting lipids. Needs to keep LDL less than 70, and HDL more than 40 09/07/19: TC 193 ,TG 58 ,HDL 82 ,LDL 99 ,CK 56 Increased Lipitor to 40 mg (07/2019). Will obtain fasting lipids for follow up. [id number]|2025-03-26 07:39:00|2025-03-26 07:39:00|XMS_ITS|BKG DAEMON|External Medical Summaries|[id number]|" Encounter Summary Created on: March 26, 2025 Lise Morgan : 1965 Sex: Female Author Organization [facility] Address [address] [place] [address] Care Team Providers Care Instructor Robotics Name Role Phone Colby Green CESAR Primary Care Provider [phone] Jaen Gonzalez MD Unavailable [phone] Sona Campos MD Unavailable [phone] Encounter Details Date Type Department Care Team (Late st Contact Info) Description 11/29/2024 Prep for Procedure [facility], [address] [address] Marcos Fu MD [facility]. [address] [place] [address] Social History Tobacco Use Types Packs/Day Years Used Date Smoking Tobacco: Every Day Cigarettes 0.5 40 Passive Smoke Exposure: Current Smokeless Tobacco: Current Comments:The provider can pr ovide you with information to quit smoking 01/06/24 Alcohol Use Standard Drinks/Week Comments Yes 0 (1 standard drink = 0.6 oz pur e alcohol) spouse reports 12 pack a day AUDIT-C Answer Date Recorded Frequency of Alcohol Consumption 2-3 times a wee k 09/23/2018 Average Number of Drinks Not on file 018 Frequency of Binge Drinking Not on file 09/08 PHQ-2 Answer Date Recorded Patient Health Questionnaire-2 Score 0 11/22/2023 Comments No Sex and Gender Information Value Date Recorded Sex Assigned at Female 11/23/2024 11:53 AM QUALITATIVE FIELD COORDINATOR Legal Sex Female 8:48 PM CDT Gender Identity Not on file Sexual Orientation Not on file documented as of this encounter Plan of Treatment Upcoming Encounters Date Type Department Care Team (Late st Contact Info) Description 04/19/2025 11:30 AM CDT Office Visit [facility], [address] [place] [address] Marcos Fu MD [facility]. [address] [place] [address] 04/20/2025 1:30 PM CDT Office Visit [facility] [phone] Jean Gonzalez MD Three [facility] [address] [place] [address] 06/01/2025 9:00 AM CDT Office Visit [facility] - [address], [address] [place] [address] Sona Campos MD [address] [place] [address] documented as of this encounter Visit Diagnoses Not on filedocumented in this encounter Additional Health Concerns Assessment Noted Time PHQ-9 Depression Total Score: 0 11/22/19 24 11:12 AM QUALITATIVE FIELD COORDINATOR documented as of this encounter Care Teams Instructor Robotics Relationship Specialty Start Date End Date Colby Green FNP [address] [place] [address] PCP - General NURSE PRACTITIONER 08/20/18 Jean Gonzalez MD Three [facility] [address] [place] [address] Consulting Physician CARDIOVASCULAR DISEASE 02/12/25 Sona Campos MD [address] [place] [address] Consulting Physician NEUROLOGY 02/12/25 documented as of this encounter "
--- OUTSIDE RECORDS SUMMARY | 2025-03-26 07:38 | XMS_ITS | Encounter Summary ---
Author Organization [facility] Address [address] [place] [address] Care Team Providers Care Cement Mixer Name Role Phone Glory Jin CESAR Primary Care Provider [phone] Jean Gonzalez MD Unavailable [phone] Sona Campos MD Unavailable [phone] Reason for Referral * Surgical (Routine) - Authorized Specialty Diagnoses / Procedures Referred By Contac t Referred To Contact Diagnoses Stenosis of common iliac artery Procedures Case request operating room: ENDARTERECTOMY SUPERFICIAL FEMORAL ARTERY (LEFT LEG) WITH COMMON ILIAC STENT PLACEMENT (LEFT LEG) Marcos Fu MD [facility]. [facility] [address] [place] [address] Phone: tel: fax: Referral ID Status Reason Start Date Expiration Date V isits Requested Visits Authorized [id number] Authorized 01/26/2025 01/26/2026 1 1 Encounter Details Date Type Department Care Team (Late st Contact Info) Description 01/26/2025 Prep for Procedure [facility], [facility] [address] [place] [address] Marcos Fu MD [facility]. [facility] [address] [place] [address] Social History Tobacco Use Types Packs/Day Years [...] Sex Assigned at Female 11/23/2024 11:53 AM PATTERN MARKING SUPERVISOR Legal Sex Female 8:48 PM CDT Gender Identity Not on file Sexual Orientation Not on file documented as of this encounter Plan of Treatment Upcoming Encounters Date Type Department Care Team (Late st Contact Info) Description 04/19/2025 11:30 AM CDT Office Visit [facility], [facility] [address] [place] [address] Marcos Fu MD [facility]. [facility] [address] [place] [address] 04/20/2025 1:30 PM CDT Office Visit [facility]-[address] [phone] Jean Gonzalez MD [facility] [address] [place] [address] 06/01/2025 9:00 AM CDT [facility] - [address], [address] [place] [phone] Sona Campos MD [address] [place] [address] Scheduled Orders Name Type Priority Associated Diagnoses Order Schedule Case request operating room: ENDARTERECTOMY SUPERFICIAL FEMORAL ARTERY (LEFT LEG) WITH COMMON ILIAC STENT PLACEMENT (LEFT LEG) Case Request Routine Stenosis of common iliac artery Once for 1 Occurrences starting 01/26/2025 until 01/26/2025 documented as of this encounter Results * TYPE & SCREEN (02/12/2025 10:12 AM CDT) ABO/RH O POSITIVE 02/12/2025 11:37 AM CDT [facility] ANTIBODY SCREEN NEGATIVE 02/12/2025 11:37 AM CDT [facility] SAMPLE EXPIRATION 03/01/2025,2 359 02/26/2025 7:43 AM CDT [facility] BB COMMENT NO HISTORY OF TRANSFUSIONS , OR ANTIBODIES, NEW SPECIMEN NOT NEEDED 02/26/2025 7:43 AM CDT [facility] 02/12/2025 10:1 2 AM CDT us Marcos Fu MD BLOOD BANK TEST ORDERABLES Final Result [facility] [address] [place] [address], * (ABNORMAL) COMPREHENSIVE METABOLIC PANEL (02/12/2025 10:12 AM CDT) GLUCOSE 114(H) 70 - 99 MG/DL 02/12/2025 11:12 AM CDT [facility] BUN 6(L) 7 - 18 MG/DL 02/12/2025 11:12 AM CDT [facility] CREATININE S/P/B 0.55 0.55 - 1.02 MG/DL 02/12/2025 11:12 AM CDT [facility] SODIUM S/P/B 130(L) 136 - 145 MMOL/L 02/12/2025 11:12 AM CDT [facility] POTASSIUM S/P/B 3.9 3.5 - 5.1 MMOL/L 02/12/2025 11:12 AM T [facility] CHLORIDE S/P/B 98 97 - 115 MMOL/L 02/12/2025 11:12 AM T [facility] CO2 25.1 21 - 32 MMOL/L 02/12/2025 11:12 AM T [facility] CALCIUM S/P/B 9.0 8.5 - 10.1 MG/DL 02/12/2025 11:12 AM [facility] BILIRUBIN TOTAL S/P/B 1.4(H) 0.2 - 1.2 MG/DL 02/12/2025 11:12 AM T [facility] Comment: THIS ASSAY IS NOT RECOMMENDED FOR PATIENTS UNDERGOING TREATMENT WITH ELTROMBOPAG DUE TO THE POTENTIAL FOR FALSELY ELEVATED RESULTS. TOTAL PROTEIN S/P/B 7.9 6.4 - 8.2 G/DL 02/12/2025 11:12 AM T [facility] ALBUMIN S/P/B 2.9(L) 3.4 - 5.0 G/DL 02/12/2025 11:12 AM [facility] AST 114(H) 15 - 37 U/L 02/12/2025 11:12 AM T [facility] ALT 62(H) 14 - 55 U/L 02/12/2025 11:12 AM T [facility] ALKALINE PHOSPHATASE S/P/B 161(H) 50 - 136 U/L 02/12/2025 11:12 AM [facility] ANION GAP 6.9 2 - 10 MMOL/L 02/12/2025 11:12 AM T [facility] BUN CREATININE RATIO 10.8 6 - 26 02/12/2025 11:12 AM CDT [facility] A/G RATIO 0.6(L) 1.0 - 2.0 RATIO 02/12/2025 11:12 AM CDT [facility] GFR ESTIMATE >90 >90 ML/MIN/1.7 3 M2 02/12/2025 11:12 AM CDT [facility] Comment: NOTE: eGFR is not calculated for patients <18 years of age or gender unknown. This is an estimated GFR calculation using the new CKD EPI creatinine equation without race and so does not require a correction factor for race. This estimated GFR should not be used for calculating drug doses. 02/12/2025 10:1 2 AM CDT us Marcos Fu MD LABORATORY Final Result Performing Organization Address [facility] de Phone Number [facility] [address] [place] [address], [place] [phone] * (ABNORMAL) PROTIME/INR, VENOUS (02/12/2025 10:12 AM CDT) PROTIME 14.1(H) 10.2 - 12.9 SEC 02/12/2025 11:09 AM CDT [facility] INR 1.2 02/12/2025 11:09 AM CDT [facility] Comment: Recommended INR Therapeutic Goals: 2.0-3.0 Routine Therapy 2.5-3.5 Mechanical Prosthetic Valves (High Risk) 02/12/2025 10:1 2 AM CDT us Marcos Fu MD LABORATORY Final Result Performing Organization Address [facility] Co de Phone Number [facility] [address] [place] [address], [place] [phone] * (ABNORMAL) CBC W/DIFF AUTOMATED (02/12/2025 10:12 AM CDT) [facility] WBC 7.85 4.5 - 11.0 x10'3/uL 02/12/2025 11:06 AM CDT [facility] RBC 3.72(L) 4.20 - 5.40 x10'6/uL 02/12/2025 11:06 AM CDT [facility] HGB 12.2 12.0 - 16.0 G/DL 02/12/2025 11:06 AM CDT [facility] HCT 34.4(L) 38.0 - 48.0 % 02/12/2025 11:06 AM CDT [facility] MCV 92.5 81.0 - 99.0 FL 02/12/2025 11:06 AM CDT [facility] MCH 32.8(H) 27.0 - 31.0 PG 02/12/2025 11:06 AM CDT [facility] MCHC 35.5 32.0 - 36.0 G/DL 02/12/2025 11:06 AM CDT [facility] RDW 14.5 11.5 - 14.5 % 02/12/2025 11:06 AM CDT [facility] PLT 104(L) 130 - 400 x10'3/uL 02/12/2025 11:06 AM CDT [facility] MPV 11.2 9.3 - 12.2 FL 02/12/2025 11:06 AM CDT [facility] DIFFERENTIAL TYPE AUTOMATED DIFFERENTIAL 02/12/2025 11:06 AM CDT [facility] NEUTROPHILS % 65.2 % 02/12/2025 11:06 AM CDT [facility] LYMPHOCYTES % 22.4 % 02/12/2025 11:06 AM CDT [facility] MONOCYTES % 9.7 % 02/12/2025 11:06 AM CDT [facility] EOSINOPHILS 1.5 % 02/12/2025 11:06 AM CDT [facility] BASOPHILS 0.8 % 02/12/2025 11:06 AM CDT [facility] IMMATURE GRANS % 0.4 % 02/13/20 11:06 AM CDT [facility] ABS. NEUTROPHILS 5.12 1.80 - 7.70 x10'3/uL 02/12/2025 11:06 AM CDT [facility] ABS. LYMPHOCYTES 1.76 1.00 - 4.80 x10'3/uL 02/12/2025 11:06 AM CDT [facility] ABS. MONOCYTES 0.76 0.24 - 0.86 x10'3/uL 02/12/2025 11:06 AM CDT [facility] ABS. EOSINOPHILS 0.12 0.04 - 0.36 x10'3/uL 02/12/2025 11:06 AM CDT [facility] ABS. BASOPHILS 0.06 0.01 - 0.08 x10'3/uL 02/12/2025 11:06 AM CDT [facility] ABS. IMMATURE GRANULOCYTES 0.03 0.00 - 0.49 x10'3/uL 02/12/2025 11:06 AM CDT [facility] 02/12/2025 10:1 2 AM CDT us Marcos Fu MD LABORATORY Final Result [facility] [address] [place] [address], * MRSA SCREENING (02/12/2025 10:11 AM CDT) SPEC DESCRIPTION NASAL 02/12/2025 10:10 AM CDT [facility] SPECIAL REQUESTS NO SPECIAL REQUEST 02/12/2025 10:10 AM CDT [facility] CULTURE RESULT NO METHICILLIN RESISTANT STAPHYLOCOCCUS AUREUS ISOLATED 02/13/2025 1:00 PM CDT [facility] SPECIMEN FROM INTERNAL NOSE / Unknown 02/12/2025 10:11 AM CDT 02/12/2025 10:12 AM CDT us Marcos Fu MD MICROBIOLOGY - GENERAL ORDERABLE S Final Result [facility] [address] [place] [address], documented in this encounter Visit Diagnoses Diagnosis Stenosis of common iliac artery- Primary documented in this encounter Additional Health Concerns Assessment Noted Time PHQ-9 Depression Total Score: 0 11/22/19 24 11:12 AM PATTERN MARKING SUPERVISOR documented as of this encounter Care Teams Cement Mixer Relationship Specialty Start Date End Date Glory Jin FNP [address] [place] [address] PCP - General NURSE PRACTITIONER 08/20/18 Jean Gonzalez MD Three [facility] [address] [place], [place] [address] Consulting Physician CARDIOVASCULAR DISEASE 02/12/25 Sona Campos MD [address] [place], [place] [address] Consulting Physician NEUROLOGY 02/12/25 documented as of this encounter
--- OUTSIDE RECORDS SUMMARY | 2025-03-26 07:39 | XMS_ITS | Encounter Summary ---
Author Organization [facility] Health Address [address] [place] [address] Care Team Providers Care Manager Linux Name Role Phone Chapo Bailey MD Primary Care Provide r Daniel Gonzalez DO Primary Care Provider [phone] Encounter Details Date Type Department Care Team (Late st Contact Info) Description 04/14/2016 [facility] Outpatient Visit [facility] [address] [place] [address] [place] [address] [place] [phone] Social History Tobacco Use Types Packs/Day Years Used Date Smoking Tobacco: Every Day Cigarettes 1 37 Smokeless Tobacco: Never Alcohol Use Standard Drinks/Week Comments Yes 0 (1 standard drink = 0.6 oz pur e alcohol) 2 12 packs beer a week Comments No Sex and Gender Information Value Date Recorded Sex Assigned at Not on file Legal Sex 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
--- OUTSIDE RECORDS SUMMARY | 2025-03-26 07:39 | XMS_ITS | Clinical Summary ---
Author Organization [facility] Address [address] [place] [address] Care Team Providers Care Plumbing Hardware Assembler Name Role Phone DesiDaniel key Isabella DO Primary Care Provider [phone] Source Comments [facility],non-owned Affiliates and Associated Physician Practices is amultiple site organization consisting of ambulatory clinics and hospital sitesin [place], [place] and [place]. This disclosure is being madepursuant to the Care Everywhere program and may not contain all information available regarding this patient. Last updated 18.[facility] Allergies No known active allergies Medications * Be aware that medications may not be up to date on this document. Alwaysverify current medications with the patient. aspirin (ASPIRIN) 81 MG tablet Take 1 Tab by mouth Active atorvastatin (LIPITOR) 20 MG tablet 1 05/02/2018 Active clopidogrel (PLAVIX) 75 MG tablet TK 1 T PO QD 1 04/27/2018 Active lisinopril (PRINIVIL;ZESTRI L) 5 MG tablet TK 1 T PO QD 3 02/25/2018 Active metoprolol tartrate (LOPRESSOR) 25 MG tablet TK 1 T PO BID 1 04/27/2018 Active thiamine (VITAMIN B-1) 100 MG tablet Take 100 mg by mouth once daily Active Docusate Calcium (STOOL SOFTENER PO) Take 100 mg by mouth Active Active Problems Problem Noted Date Diagnosed Date Carotid artery disease 05/18/2017 Family History Medical History Relation Name Comments Diabetes Brother 2 Heart Disease Father quadruple bypa ss Other Mother sepsis Relation Name Status Comments Brother 1 Alive Brother 2 Father Alive Mother sepsis Social History Tobacco Use Types Packs/Day Years Used Date Smoking Tobacco: Former Cigarettes 1 37 1 - 09/03/2017 Smokeless Tobacco: Never Comments:use electronic ciga rette Alcohol Use Standard Drinks/Week Comments Yes 0 (1 standard drink = 0.6 oz pur e alcohol) 2 12 packs beer a week Comments No Sex and Gender Information Value Date Recorded Sex Assigned at Not on file Legal Sex Female 9:59 AM WEBSITE DEVELOPER Gender Identity Not on file Sexual Orientation Not on file Last Filed Vital Signs Vital Sign Reading Time Taken Comments Blood Pressure 160/103 04/11/2014 10:47 AM CDT Pulse 98 04/11/2014 10:47 AM CDT Temperature - - Respiratory Rate - - Oxygen Saturation 97% 04/11/2014 10:47 AM CDT Inhaled Oxygen Concentration - - Weight 62.1 kg (137 lb) 05/19/2018 9:50 AM CDT Height 168.9 cm (5' 6.5 ) 05/19/2018 9:50 AM CDT Body Mass Index 21.78 05/19/2018 9:50 AM CDT Plan of Treatment Health Maintenance Due Date Last Done Comments COLOGUARD (AGES 45-75) - COL ON CA SCREENING 1965 COLON MONITORING 1965 COLONOSCOPY - COLON CA SCREENING 1965 CT COLONOGRAPHY - COLON CA SCREENING 1965 Colorectal Cancer Screening 1965 FIT - COLON CA SCREENING 1965 FLEX SIG - COLON CA SCREENING 1965 MAMMOGRAM 1965 HIV SCREENING 1978 HEPATITIS C SCREENING 09/07/1981 DTAP/TDAP/TD VACCINES (1 - Tdap) 1982 PNEUMOCOCCAL VACCINE 50+ (1 of 1 - PCV) 2013 ZOSTER VACCINE (1 of 2) 2013 COVID-19 VACCINE ( - 2023-2 5 season) 2024 DEPRESSION SCREENING 11/08/2024 INFLUENZA VACCINE (Season Ended) 2025 Respiratory Syncytial Virus (RSV) Vaccine Pt: or over 60 yrs (1 - 1-dose 75+ series) 2038 HEPATITIS B VACCINE Aged Out No longe r eligible based on patient's age to complete this topic HIB VACCINE Aged Out No longer eligi ble based on patient's age to complete this topic HPV VACCINE Aged Out No longer eligi ble based on patient's age to complete this topic MENINGOCOCCAL (Group B) VACC INE SHARED DECISION-MAKING Aged Out No longer eligibl e based on patient's age to complete this topic MENINGOCOCCAL GROUPS A/C/Y/W VACCINE Aged Out No longer eligible b ased on patient's age to complete this topic Insurance [facility] Address: [address] [address] Care Teams Plumbing Hardware Assembler Relationship Specialty Start Date End Date Daniel Gonzalez DO PCP - General 05/03/18
== END 2025-03-26 07:33 | disposition home or self-care (01) ==
PROVIDERS: PCP Nurse Practitioner Family; Visit Provider Nurse Practitioner Family
DX: Z12.2 Encounter for screening for malignant neoplasm of respiratory organs (principal); F17.210 Nicotine dependence, cigarettes, uncomplicated; I70.0 Atherosclerosis of aorta
CPT/HCPCS: 71271

== ENCOUNTER 2025-08-14 09:27 | Emergency (ER) | payer BC, SELFPAY ==
--- NOTE | ~2025-08-14 | XR_ITS ---
Examination: XR wrist LT min 3V Clinical History: POSTERIOR LT WRIST PAIN SWELLING AFTER FALL x3 DAYS AGO Comparison: 12/12/2021 Technique: 4 views left wrist Findings/impression: 1. No acute fracture or dislocation. 2. Distal radial ORIF intact. 3. Minimal positive ulnar variance, with chronic ulnar styloid fracture. 4. Radiocarpal joint space narrowing, with associated degenerative changes. 5. Degenerative changes basal joint of thumb. Reviewed, dictated and finalized at location R.
[2025-08-14 09:33] VITALS: BP 132/72; PULSE 88; RESP 18; TEMP 36.9; O2SAT 98
--- OUTSIDE RECORDS SUMMARY | 2025-08-14 09:58 | XMS_ITS | Encounter Summary ---
Author Organization [facility] Address [address] [place] [id number] Care Team Providers Care Slot Tag Inserter Name Role Phone Glory Jin Primary Care Provider [phone] Jean Gonzalez MD Unavailable Sona Campos MD Unavailable [phone] Reason for Referral * Surgical (Routine) - Authorized Specialty Diagnoses / Procedures Referred By Jamarcus lynn Referred To Contact Diagnoses Stenosis of common iliac artery Procedures Case request operating room: ENDARTERECTOMY SUPERFICIAL FEMORAL ARTERY (LEFT LEG) WITH COMMON ILIAC STENT PLACEMENT (LEFT LEG) Marcos Fu MD [facility]. [facility] [address] [place] [address] Phone: tel: fax: Referral ID Status Reason Start Date Expiration Date V isits Requested Visits Authorized [id number] Authorized 01/26/2025 01/26/2026 1 1 Encounter Details Date Type Department Care Team (Late st Contact Info) Description 01/26/2025 Prep for Procedure [facility] [address] [place] [address] Marcos Fu MD [facility]. [facility] [address] [place] [address] Social History Tobacco Use Types [...] Sex Assigned at Female 11/23/2024 11:53 AM ELECTRICAL FITTER Legal Sex Female 8:48 PM CDT Gender Identity Not on file Sexual Orientation Not on file documented as of this encounter Plan of Treatment Upcoming Encounters Date Type Department Care Team (Late st Contact Info) Description 10/19/2025 1:45 PM ELECTRICAL FITTER Office Visit [facility] [phone] Jean Gonzalez MD [facility] [address] [facility] [place] [address] 11/19/2025 9:40 AM ELECTRICAL FITTER Office Visit [facility] Family & Internal Medicine - [address] [phone] Glory Jin FNP [address] [place] [address] 11/29/2025 10:00 AM ELECTRICAL FITTER Office Visit [facility] [address] [place] [address] Marcos Fu MD [facility]. [facility] [address] [place] [address] 07/01/2026 10:20 AM CDT Office Visit [facility] Multis[facility] - [facility] [address] [facility], [address] [place] [id number] Sona Campos MD [address] [place] [address] Scheduled Orders Name Type Priority Associated Diagnoses Order Schedule Case request operating room: ENDARTERECTOMY SUPERFICIAL FEMORAL ARTERY (LEFT LEG) WITH COMMON ILIAC STENT PLACEMENT (LEFT LEG) Case Request Routine Stenosis of common iliac artery Once for 1 Occurrences starting 01/26/2025 until 01/26/2025 documented as of this encounter Results * TYPE & SCREEN (02/12/2025 10:12 AM CDT) ABO/RH O POSITIVE 02/12/2025 11:37 AM CDT [facility] ANTIBODY SCREEN NEGATIVE 02/12/2025 11:37 AM CDT [facility] SAMPLE EXPIRATION 03/01/2025,2 359 02/26/2025 7:43 AM CDT [facility] BB COMMENT NO HISTORY OF TRANSFUSIONS , OR ANTIBODIES, NEW SPECIMEN NOT NEEDED 02/26/2025 7:43 AM CDT [facility] 02/12/2025 10:1 2 AM CDT Marcos Fu MD BLOOD BANK TEST ORDERABLES Final Result [facility] [address] [place] [address], [place] [phone] * (ABNORMAL) COMPREHENSIVE METABOLIC PANEL (02/12/2025 10:12 AM CDT) GLUCOSE 114(H) 70 - 99 MG/DL 02/12/2025 11:12 AM CDT [facility] BUN 6(L) 7 - 18 MG/DL 02/12/2025 11:12 AM CDT [facility] CREATININE S/P/B 0.55 0.55 - 1.02 MG/DL 02/12/2025 11:12 AM CDT [facility] SODIUM S/P/B 130(L) 136 - 145 MMOL/L 02/12/2025 11:12 AM CDT [facility] POTASSIUM S/P/B 3.9 3.5 - 5.1 MMOL/L 02/12/2025 11:12 AM T [facility] CHLORIDE S/P/B 98 97 - 115 MMOL/L 02/12/2025 11:12 AM T [facility] CO2 25.1 21 - 32 MMOL/L 02/12/2025 11:12 AM T [facility] CALCIUM S/P/B 9.0 8.5 - 10.1 MG/DL 02/12/2025 11:12 AM T [facility] BILIRUBIN TOTAL S/P/B 1.4(H) 0.2 - 1.2 MG/DL 02/12/2025 11:12 AM T [facility] Comment: THIS ASSAY IS NOT RECOMMENDED FOR PATIENTS UNDERGOING TREATMENT WITH ELTROMBOPAG DUE TO THE POTENTIAL FOR FALSELY ELEVATED RESULTS. TOTAL PROTEIN S/P/B 7.9 6.4 - 8.2 G/DL 02/12/2025 11:12 AM T [facility] ALBUMIN S/P/B 2.9(L) 3.4 - 5.0 G/DL 02/12/2025 11:12 AM T [facility] AST 114(H) 15 - 37 U/L 02/12/2025 11:12 AM T [facility] ALT 62(H) 14 - 55 U/L 02/12/2025 11:12 AM CDT [facility] ALKALINE PHOSPHATASE S/P/B 161(H) 50 - 136 U/L 02/12/2025 11:12 AM CDT [facility] ANION GAP 6.9 2 - 10 MMOL/L 02/12/2025 11:12 AM CDT [facility] BUN CREATININE RATIO 10.8 6 - 26 02/12/2025 11:12 AM CDT [facility] A/G RATIO 0.6(L) 1.0 - 2.0 RATIO 02/12/2025 11:12 AM CDT [facility] GFR ESTIMATE >90 >90 ML/MIN/1.7 3 M2 02/12/2025 11:12 AM CDT [facility] Comment: NOTE: eGFR is not calculated for patients <18 years of age or gender unknown. This is an estimated GFR calculation using the new CKD EPI creatinine equation without race and so does not require a correction factor for race. This estimated GFR should not be used for calculating drug doses. 02/12/2025 10:1 2 AM CDT Marcos Fu MD LABORATORY Final Result [facility] [address] [place] [address], * (ABNORMAL) PROTIME/INR, VENOUS (02/12/2025 10:12 AM CDT) PROTIME 14.1(H) 10.2 - 12.9 SEC 02/12/2025 11:09 AM CDT [facility] INR 1.2 02/12/2025 11:09 AM CDT [facility] Comment: Recommended INR Therapeutic Goals: 2.0-3.0 Routine Therapy 2.5-3.5 Mechanical Prosthetic Valves (High Risk) 02/12/2025 10:1 2 AM CDT us Marcos Fu MD LABORATORY Final Result [facility] [address] [place] [address], [place] [phone] * (ABNORMAL) CBC W/DIFF AUTOMATED (02/12/2025 10:12 AM CDT) WBC 7.85 4.5 - 11.0 x10'3/uL 02/12/2025 11:06 AM CDT [facility] RBC 3.72(L) 4.20 - 5.40 x10'6/uL 02/12/2025 11:06 AM CDT [facility] HGB 12.2 12.0 - 16.0 G/DL 02/12/2025 11:06 AM CDT [facility] HCT 34.4(L) 38.0 - 48.0 % 02/12/2025 11:06 AM CDT [facility] MCV 92.5 81.0 - 99.0 FL 02/12/2025 11:06 AM CDT [facility] MCH 32.8(H) 27.0 - 31.0 PG 02/12/2025 11:06 AM CDT [facility] MCHC 35.5 32.0 - 36.0 G/DL 02/12/2025 11:06 AM CDT [facility] RDW 14.5 11.5 - 14.5 % 02/12/2025 11:06 AM CDT [facility] PLT 104(L) 130 - 400 x10'3/uL 02/12/2025 11:06 AM CDT [facility] MPV 11.2 9.3 - 12.2 FL 02/12/2025 11:06 AM CDT [facility] DIFFERENTIAL TYPE AUTOMATED DIFFERENTIAL 02/12/2025 11:06 AM T [facility] NEUTROPHILS % 65.2 % 02/12/2025 11:06 AM T [facility] LYMPHOCYTES % 22.4 % 02/12/2025 11:06 AM T [facility] MONOCYTES % 9.7 % 02/12/2025 11:06 AM T [facility] EOSINOPHILS 1.5 % 02/12/2025 11:06 AM T [facility] BASOPHILS 0.8 % 02/12/2025 11:06 AM T [facility] IMMATURE GRANS % 0.4 % 02/13/20 11:06 AM T [facility] ABS. NEUTROPHILS 5.12 1.80 - 7.70 x10'3/uL 02/12/2025 11:06 AM T [facility] ABS. LYMPHOCYTES 1.76 1.00 - 4.80 x10'3/uL 02/12/2025 11:06 AM [facility] ABS. MONOCYTES 0.76 0.24 - 0.86 x10'3/uL 02/12/2025 11:06 AM [facility] ABS. EOSINOPHILS 0.12 0.04 - 0.36 x10'3/uL 02/12/2025 11:06 AM T [facility] ABS. BASOPHILS 0.06 0.01 - 0.08 x10'3/uL 02/12/2025 11:06 AM [facility] ABS. IMMATURE GRANULOCYTES 0.03 0.00 - 0.49 x10'3/uL 02/12/2025 11:06 AM [facility] 02/12/2025 10:1 2 AM CDT Marcos Fu MD LABORATORY Final Result [facility] [address] [place] [address], [place] [phone] * MRSA SCREENING (02/12/2025 10:11 AM CDT) SPEC DESCRIPTION NASAL 02/12/2025 10:10 AM CDT [facility] SPECIAL REQUESTS NO SPECIAL REQUEST 02/12/2025 10:10 AM CDT [facility] CULTURE RESULT NO METHICILLIN RESISTANT STAPHYLOCOCCUS AUREUS ISOLATED 02/13/2025 1:00 PM CDT [facility] SPECIMEN FROM INTERNAL NOSE / Unknown 02/12/2025 10:11 AM CDT 02/12/2025 10:12 AM CDT Marcos Fu MD MICROBIOLOGY - GENERAL ORDERABLE S Final Result Performing Organization Address City/[facility]/ZIP Co de Phone Number [facility] [address] [place] [address], [place] [phone] documented in this encounter Visit Diagnoses Diagnosis Stenosis of common iliac artery- Primary documented in this encounter Additional Health Concerns Assessment Noted Time PHQ-9 Depression Total Score: 0 11/22/19 24 11:12 AM ELECTRICAL FITTER documented as of this encounter Care Teams Slot Tag Inserter Relationship Specialty Start Date End Date Glory Jin FNP [address] [place] [id number] PCP - General NURSE PRACTITIONER 08/20/18 Jean Gonzalez MD [address] [facility] [address] [place] [address] Consulting Physician CARDIOVASCULAR DISEASE 02/12/25 Sona Campos MD [address] [place] [address] Consulting Physician NEUROLOGY 02/12/25 documented as of this encounter
--- OUTSIDE RECORDS SUMMARY | 2025-08-14 09:58 | XMS_ITS | Clinical Summary ---
Author Organization [facility] Address [address] [place] [address] Care Team Providers Care Business Process Modeler Name Role Phone Flynn Jinanda CESAR Primary Care Provider [phone] Jean Gonzalez MD Unavailable [phone] Sona Campos MD Unavailable [phone] Allergies Active Allergy Reactions Criticality Noted Date Comments Sulfamethoxazole-Trimethoprim Seizure High 2022 Hydrocodone Itching 12/12/2021 Hydrocodone-Acetaminophen Itching Low 06/18/2023 Medications aspirin 81 [...] by mouth 2 (two) times daily. Active magnesium oxide (MAG-OX) 250 MG tablet Take 1 tablet (250 mg total) by mouth daily. Active Coenzyme Q10 (COQ-10) 100 MG Cap Take 1 capsule by mouth daily. Active rosuvastatin (CRESTOR) 40 MG tabletIndications :Mixed hyperlipidemia Take 1 tablet (40 mg total) by mouth nightly at bedtime. 90 tablet 3 03/08/20 25 Active vitamin D3, cholecalciferol, 25 mcg capsuleIndication s:Low vitamin D level Take 5 capsules (5,000 Units total) by mouth daily. 03/12/20 25 Active clopidogrel (PLAVIX) 75 MG tablet Take 1 tablet (75 mg total) by mouth daily. Active levETIRAcetam (KEPPRA) 500 MG tabletIndications :Seizure (CMS/HCC HHS/HCC) Take 1 tablet (500 mg total) by mouth 2 (two) times daily. 180 tablet 3 07/04/20 25 026 Active lisinopril (PRINIVIL) 10 MG tabletIndications :Essential hypertension TAKE 1 TABLET(10 MG) BY MOUTH DAILY 90 tablet 07/19/20 25 Active folic acid (FOLVITE) 1 MG tabletIndications :Folic acid deficiency Take 1 tablet (1 mg total) by mouth daily. 30 tablet 1 08/10/20 25 Active metoprolol tartrate (LOPRESSOR) 25 MG tabletIndications :Primary hypertension Take 1 tablet (25 mg total) by mouth 2 (two) times daily. 180 tablet 1 08/10/20 25 Active cyclobenzaprine (FLEXERIL) 10 MG tabletIndications :Muscle spasm TAKE 1 TABLET(10 MG) BY MOUTH THREE TIMES DAILY NEEDED FOR MUSCLE SPASMS 90 tablet 08/13/20 25 Active metoprolol tartrate (LOPRESSOR) 25 MG tabletIndications :Essential hypertension TAKE 1 TABLET(25 MG) BY MOUTH TWICE DAILY 180 tablet 1 02/14/20 25 025 Discontinued(R eorder) lisinopril (PRINIVIL) 10 MG tabletIndications :Essential hypertension Take 1 tablet (10 mg total) by mouth daily. 90 tablet 04/20/20 25 025 Discontinued folic acid (FOLVITE) 1 MG tabletIndications :Folic acid deficiency TAKE 1 TABLET(1 MG) BY MOUTH DAILY 30 tablet 1 07/03/20 25 025 Discontinued(R eorder) cyclobenzaprine (FLEXERIL) 10 MG tabletIndications :Muscle spasm TAKE 1 TABLET(10 MG) BY MOUTH THREE TIMES DAILY NEEDED FOR MUSCLE SPASMS 90 tablet 07/06/20 25 025 Discontinued(R eorder) cyclobenzaprine (FLEXERIL) 10 MG tabletIndications :Muscle spasm Take 1 tablet (10 mg total) by mouth 3 (three) times daily as needed for Muscle Spasms. 90 tablet 08/10/20 25 025 Discontinued Active Problems Problem Noted Date Diagnosed Date Hx of CABG 04/19/2025 S/P IVC filter 03/09/2025 Stenosis of left iliac artery 03/09/2025 Cigarette nicotine dependence without complicati on 03/09/2025 Hematoma 03/09/2025 Stenosis of common iliac artery 01/26/2025 Peripheral vascular disease 06/22/2024 B12 deficiency 11/22/2023 Folic acid deficiency 11/22/2023 Seizure ([facility]) 11/22/2023 Vasovagal syncope 03/10/2023 Alcohol dependence in remission ([facility] ) 03/10/2023 Family history of diabetes mellitus [...] n (NSTEMI) 09/05/2017 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 Tobacco dependence syndrome 09/05/2017 Carotid artery disease 05/18/2017 Post-menopausal 04/20/2017 Hypertension 04/13/2017 CVA, old, hemiparesis ([facility]) 03/30/20 12 TIA (transient ischemic attack) 03/29/2012 [...] Encounters Date Type Department Care Team Description 08/10/2025 Telephone [facility] Family & Internal Medicine [address] [address] Glory Jin FNP Refill Request 08/10/2025 Travel 07/26/2025 Scan HEALTH INFO SRVCS Scanned, [facility] 07/25/2025 Telephone [facility] Internal [address] [address] Glory Jin FNP Referral 07/04/2025 8:40 AM CDT Office Visit [facility]ty Care - [address], [address] [place] [address] Sona Campos MD Seizures 07/04/2025 Travel 06/21/2025 10:15 AM CDT Office Visit [facility], [address] [address] Marcos Fu MD Follow Up 06/21/2025 Travel 05/28/[address] [address] Glory Jin FNP Advice; Medication Request 05/21/2025 Results Follow-Up [facility] [address] [address] Melissa Lozada RN NM PHARM NUC STRESS TEST 1 DAY W TRACING 05/16/2025 10:15 AM CDT - 05/16/2025 11:59 PM CDT Hospital Encounter [facility] [place] [address] Mehul Gil MD Discharge Disposition: Home or Self Care (Routine Discharge) 05/16/2025 Travel from Last 3 Months Immunizations Immunization Administration Dates Next Due Fluzone 6 Months+ Quad (0.5 mL Prefilled Syringe) 11/22/2023,07/19/2020 Influenza (Generic) 08/11/2024 Influenza Adult (Generic) 11/22/2023,11/2021,07/19/2020,2016 MODERNA COVID-19 (12+), MRNA , LNP-S, PF, 50 MCG/0.5 ML (SPIKEVAX) 08/11/2024 PFIZER COVID-19 (ORIGINAL FORMULATION, PURPLE CAP) mRNA, LNP-S, PF, 30 MCG/0.3 ML DOSE 11/05/2021,02/05/2021,01/15/2021 Pneumococcal (Prevnar 20) 07/15/2022 Shingrix 07/17/2022 Tdap (Boostrix) 06/29/2019 Tdap (Generic) 06/29/2019 Family History Medical History Relation Comments Diabetes Brother Heart Father Relation Status Comments Brother Father Mother Social History Tobacco Use Types Packs/Day Years Used Date Smoking Tobacco: Every Day Cigarettes 0.5 47.8 Started: 1977 Passive Smoke Exposure: Current Smokeless Tobacco: Never Tobacco Cessation:Ready to Q uit: No; Counseling Given: Yes Alcohol Use Standard Drinks/Week Comments Yes 46.7 (1 standard drink = 0.6 oz pure alcohol) [facility] Savings.comities Answer Date Recorded In the past 12 months has e [employer] gas, oil, or water [employer] threatened to shut off services in your [...] Frequency of Alcohol Consumption 2-3 times a antonio chaudhary 09/23/2018 Average Number of Drinks Not [...] any time in the past 12 m [facility], were you homeless or living in a fdc (including now)? No 03/09/2025 Comments No Sex and Gender Information Value Date Recorded Sex Assigned at Female 11/23/2024 11:53 AM OCEANOGRAPHER GEOLOGICAL Legal Sex Female 8:48 PM CDT Gender Identity Not on file Sexual Orientation Not on file Last Filed Vital Signs Vital Sign Reading Time Taken Comments Blood Pressure 116/62 08/10/2025 10:01 AM CDT Pulse 93 08/10/2025 10:01 AM CDT Temperature 36.8 C (98.2 F) 08/10/2025 10:01 AM CDT Respiratory Rate 16 07/04/2025 8:56 AM CDT Oxygen Saturation 98% 08/10/2025 10:01 AM CDT Inhaled Oxygen Concentration - - Weight 61.3 kg (135 lb 1.6 oz) 08/10/2025 10:01 AM CDT Height 165.1 cm (5' 5) 08/10/2025 10:01 AM CDT Body Mass Index 22.48 08/10/2025 10:01 AM CDT Plan of Treatment Upcoming Encounters Date Type Department Care Team (Late st Contact Info) Description 10/19/2025 1:45 PM OCEANOGRAPHER GEOLOGICAL Office Visit [facility] [address] Jean Gonzalez MD Three [facility] [address] [place] [address] 11/19/2025 9:40 AM OCEANOGRAPHER GEOLOGICAL Office Visit [facility] Family & Internal Medicine - [address] [phone] Glory Jin [address] [address] 11/29/2025 10:00 AM OCEANOGRAPHER GEOLOGICAL Office Visit [facility] THREE [facility] [address] [place] [address] Marcos Fu MD [facility]. [facility] [address] [place] [address] 07/01/2026 10:20 AM CDT Office Visit [facility] - [facility] [address] [facility], [address] [place] [address] Sona Campos MD [address] [place] [address] Health Maintenance Due Date Last Done Comments Annual Physical 1966 Lung Cancer Screening 2013 Cervical Cancer Screening Pap Smear (Age 30 to 64) Every 3 Years 04/13/2020 04/13/2017 Cervical Cancer Screening Pap with HPV Testing (Age 30 to 64) Every 5 Years 04/13/2022 04/13/2017 Zoster Vaccines (2 of 2) 09/11/2022 07/17/2022 RSV Immunization or 60+ Years (1 - Risk 60-74 years 1-dose series) 2023 Mammogram Screening 12/24/2024 12/24/2022, 07/01/2021, 10/21/2018 Influenza Adult (#1) 2025 08/11/2024, 11/22/2023, 11/22/2023, Additional history exists Cervical Cancer Screening with HPV 03/09/2026 Postponed from 04/13/2020 (Future Appointment) Colorectal Cancer Screening Colonoscopy (10 Years) 03/09/2026 Postponed from 1965 (Future Appointment) DTaP, Tdap and Td Vaccines (3 - Td or Tdap) 06/29/2029 06/29/2019, 06/29/2019 Pneumococcal Vaccine: 50+ Years Completed 07/15/2022 Hepatitis C Completed 07/16/2022, 08/01/2020 COVID-19 Vaccine Completed 08/11/2024, , 02/05/2021, Additional history exists PHQ-2 (Physician [place]) Completed 03/09/2025 Meningococcal B Vaccine Aged Out [...] perform ADLs independently Lifestyle No Mari Monteiro, LUMBER PRESS OPERATORwindow cleaner Devices Implanted Type Area Sorter Pricer Device Identifier Shelf Expiration Date Model / Serial / Lot Patch Brigette. Vasc. Vascu-Guard 0.8cm X 8cm - [id number] Implanted:Qty: 1 on 02/26/2025 by Marcos Fu MD at [facility] Mesh Left: [employer] - BIOSCIENCE 08/28/2026 [id number] / / [id number] Description:RIGHT FEMORAL AR NAKITA PATCH Procedures Procedure Name Priority Date/Time Associated Diagnosis Comments NM PHARM NUC STRESS TEST 1DAY W TRACING Routine 05/16/2025 1:03 PM CDT Chest pain CARDIOLOGY STRESS TEST ONLY, EXERCISE Routine 05/16/2025 10:31 AM CDT Chest pain Atherosclerosis of coronary artery Hypertension Hyperlipemia Carotid artery disease MAMMOGRAM GENERIC (SCAN ORDER) 12/24/2022 HEPATITIS PANEL,ACUTE 07/16/2022 11:30 AM CDT HPV, HUMAN PAPILLOMAVIRUS Routine 04/13/2017 9:00 AM CDT THINPREP IMAGING SYSTEM PAP Routine 04/13/2017 9:00 AM CDT from Last 3 Months or Most Recently Relevant to Health Maintenance Results * NM PHARM NUC STRESS TEST 1 DAY W TRACING (05/16/2025 1:03 PM CDT) Anatomical Region Laterality Modality Cardiac Nuclear Medicine 05/16/2025 11:2 6 AM CDT Narrative 05/19/2025 12:30 PM CDT Myocardial Perfusion Imaging Pat.Name: LISE MORGAN Pat.ID: [id number] St.Date: 05/16/2025 Refer.MD: Mehul Gil [id number] Exam Time: 11:26:00 AM Study Type:VIVIANE NC HT MUSCLE IMAGE SPECT MULTI Age: 11 1965,59Y Sex: F Sonogrphr: MARLA Prescott Pat. Stat.:Outpatient Reason for Study:Chest pain, History of IA, Evaluation of known CAD History / Clinical:Smoker, PVD/PAD, Hypertension, Stroke/CVA/TIA Procedures: Nuclear Stress Test with Lexiscan Race: W Surgery: Coronary Artery Bypass Graft ++++++++++++++++++++++++++++++++++++ SUMMARY: ++++++++++++++++++++++++++++++++++++ Stress conclusion: 1. Clinically negative. 2. Electrocardiographically negative stress test for ischemia. 3. Scintigraphic images to follow. Perfusion conclusion: 1. Good study quality. No motion correction was applied to images. No attenuation is noted. Prone imaging was performed. 2. Normal myocardial perfusion SPECT imaging. 3. Normal wall motion with an ejection fraction of 70%. 4. Stress test with myocardial perfusion imaging shows overall low risk for a cardiac event. ++++++++++++++++++++++++++++++++++++ FINDINGS: ++++++++++++++++++++++++++++++++++++ Protocol: Lexiscan 0.4mg was given as a rapid injection IV over a period of 10 seconds with the radiopharmaceutical injected at 20 seconds. The images were processed using the standard SPECT technique. A gated study was performed on the stress images. Impression: SPECT images demonstrate normal perfusion of normal intensity. Heart Size: The left ventricle is normal. LV Wall Motion: The LVEF is calculated to be 70%. Gated SPECT images reveal normal wall motion. Transient Ischemic Dilatation: The TID is 0.64. ++++++++++++++++++++++++++++++++++++ STRESS: ++++++++++++++++++++++++++++++++++++ Baseline Vital Signs: ECG: Sinus tachycardia HR: 112 bmp Rest BP: 131/56 Regadenoson Peak Dose: 0.4 mg Stress Test Results: Max HR: 121 bmp Target HR: 159 bmp % Target: 76 % Max BP: 118/52 Max RPP: 84492 O2 sat: 99 % Symptoms and Complications: Arrhythmias: None Terminated: Protocol completed Symptoms: None Complications: None Stress ECG Interp: Sinus tachycardia <Electronic Signature> 05/19/2025 12:30 PM Jean Gonzalez M.D. Procedure Note Jean Gonzalez MD - 05/19/2025 Myocardial Perfusion Imaging Pat.Name: LISE MORGAN Pat.ID: [id number] .Date: 05/16/2025 Refer.: Mehul Gil [id number] Exam Time: 11:26:00 AM Study Type:VIVIANE NC HT MUSCLE IMAGE SPECT MULTI Age: 11 1965,59Y Sex: F Sonogrphr: Penny Antunez [facility] Pat. Stat.:Outpatient Reason for Study:Chest pain, History of IA, Evaluation of known CAD History / Clinical:Smoker, PVD/PAD, Hypertension, Stroke/CVA/TIA Procedures: Nuclear Stress Test with Lexiscan Race: W Surgery: Coronary Artery Bypass Graft ++++++++++++++++++++++++++++++++++++ SUMMARY: ++++++++++++++++++++++++++++++++++++ Stress conclusion: 1. Clinically negative. 2. Electrocardiographically negative stress test for ischemia. 3. Scintigraphic images to follow. Perfusion conclusion: 1. Good study quality. No motion correction was applied to images. No attenuation is noted. Prone imaging was performed. 2. Normal myocardial perfusion SPECT imaging. 3. Normal wall motion with an ejection fraction of 70%. 4. Stress test with myocardial perfusion imaging shows overall low risk for a cardiac event. ++++++++++++++++++++++++++++++++++++ FINDINGS: ++++++++++++++++++++++++++++++++++++ Protocol: Lexiscan 0.4mg was given as a rapid injection IV over a period of 10 seconds with the radiopharmaceutical injected at 20 seconds. The images were processed using the standard SPECT technique. A gated study was performed on the stress images. Impression: SPECT images demonstrate normal perfusion of normal intensity. Heart Size: The left ventricle is normal. LV Wall Motion: The LVEF is calculated to be 70%. Gated SPECT images reveal normal wall motion. Transient Ischemic Dilatation: The TID is 0.64. ++++++++++++++++++++++++++++++++++++ STRESS: ++++++++++++++++++++++++++++++++++++ Baseline Vital Signs: ECG: Sinus tachycardia HR: 112 bmp Rest BP: 131/56 Regadenoson Peak Dose: 0.4 mg Stress Test Results: Max HR: 121 bmp Target HR: 159 bmp % Target: 76 % Max BP: 118/52 Max RPP: 02724 O2 sat: 99 % Symptoms and Complications: Arrhythmias: None Terminated: Protocol completed Symptoms: None Complications: None Stress ECG Interp: Sinus tachycardia <Electronic Signature> 05/19/2025 12:30 PM Jean Gonzalez M.D. us Mehul Gil MD NUC MED Final Result * MAMMOGRAM GENERIC (12/24/2022) Anatomical Region Laterality Modality Other 12/24/2022 us [facility] Scanned SCANNING Final Resu lt * HEPATITIS PANEL,ACUTE (07/16/2022 11:30 AM CDT) HEPATITIS A IGM Negative Negative [facility] 1 HEPATITIS B SURFACE AG Negative Negative [facility] 1 HEP B CORE AB COMMENT Negative Negative [facility] 1 HEPATITIS C AB <0.1 0.0 - 0.9 s/co ratio [facility] 1 INTERPRETATION Comment [facility] 1 Comment: Negative Not infected with HCV, unless recent infection is suspected or other evidence exists to indicate HCV infection. 07/16/2022 11:3 0 AM CDT 07/16/2022 Narrative [facility] - 07/17/2022 5:07 AM CDT Performed at: [facility] [id number] Retanned Leather Roller: Kamron Barkley PhD, Phone: [phone] us [facility] Final Result [facility] [address] [place] [address] [facility] 1 * THINPREP IMAGING SYSTEM PAP (04/13/2017 9:00 AM CDT) CLINICAL INFORMATION: Routine exam [facility] TO EPIC CONVERSION Clinical Information: 2011 [facility] TO EPIC CONVERSION Date of Last Pap 2013 [facility] TO EPIC CONVERSION Previous Biopsy? NONE [facility] TO EPIC CONVERSION SOURCE (QST) Cervix [facility] TO EPIC CONVERSION COMMENT SEE NOTE [facility] T O EPIC CONVERSION Comment: Result Comment: Specimen processed and examined, but unsatisfactory for evaluation due to an insufficient number of squamous cells. PAP INTERPRETATION/RESUL TS SEE NOTE [facility] TO EPIC CONVERSION Comment: Result Comment: Unable to provide interpretation due to unsatisfactory specimen adequacy. COMMENT: SEE NOTE [facility] T O EPIC CONVERSION Comment: Result Comment: This Pap test has been evaluated with computer assisted technology. Microscopic features suggestive of lubricant. Lubricant jellies may interfere with slide preparation; their use is not recommended. ADVERTISING SUPERVISOR SEE NOTE [facility] TO EPIC CONVERSION Comment: Result Comment: YADI CT(ASCP) CT screening location: [address] [place] [address] REVIEW ADVERTISING SUPERVISOR: SEE NOTE [facility] T O EPIC CONVERSION Comment: Result Comment: NATASHA CT(ASCP) CT screening location: [address] [place] [address] Test Performed at: [address] [phone] DANIA CRUZ MD 04/13/2017 9:00 AM CDT 04/13/2017 9:00 AM CDT Narrative [facility] CON[facility] - 04/14/2017 6:09 AM CDT Result Communication: No patient communication needed at this time us Glory [facility] PATHOLOGY/CYTOLOGY ORDERABLES Final Result [facility] TO [facility]IC CONVERSION * HPV, HUMAN PAPILLOMAVIRUS (04/13/2017 9:00 AM CDT) HPV INTERMEDIATE/HIGH RISK NOT DETECTED [facility] TO EPIC CONVERSION Comment: Result Comment: Tested for High Risk types 16, 18, 31, 33, 35, 39, 45, 51, 52, 56, 58, 59, 68. REFERENCE RANGE: HPV DNA HIGH RISK: NOT DETECTED The analytical performance characteristics of this assay have been determined by [facility]. The modifications have not been cleared or approved by the FDA. This assay has been validated pursuant to the CLIA regulations and is used for clinical purposes. Test Performed at: [email or web address] [address] [place] [id number] Ratna ALFORD 04/13/2017 9:00 AM CDT 04/13/2017 9:00 AM CDT Narrative [facility] TO [facility]IC CONVERSION - 04/14/2017 6:09 AM CDT Result Communication: No patient communication needed at this time Glory [facility]ERRERO PATHOLOGY/CYTOLOGY ORDERABLES Final Result [facility] TO EPIC CONVERSION from Last 3 Months or Most Recently Relevant to Health Maintenance Insurance [facility] Advance Directives * Full Code (Latest Code Status on File) Date Activated Date Inactivated Comments 03/09/2025 6:46 PM 03/12/2025 1:02 PM Care Teams Business Process Modeler Relationship Specialty Start Date End Date Glory Jin FNP [address] [place] [address] PCP - General NURSE PRACTITIONER 08/20/18 Jean Gonzalez MD Three [facility] [address] [place] [address] Consulting Physician CARDIOVASCULAR DISEASE 02/12/25 Sona Campos MD [address] [place] [address] Consulting Physician NEUROLOGY 02/12/25
--- OUTSIDE RECORDS SUMMARY | 2025-08-14 09:58 | XMS_ITS | Encounter Summary ---
Author Organization [facility] Address [address] [place] [address] Care Team Providers Care Embedded Nurse Name Role Phone RobbyGlory rodriges CESAR Primary Care Provider [phone] Jean Gonzalez MD Unavailable [phone] Sona Campos MD Unavailable [phone] Encounter Details Date Type Department Care Team (Late st Contact Info) Description 11/06/2024 Prep for Procedure [facility] THREE [facility], [facility] [address] [place] [address] Marcos Fu MD [facility]. [facility] [address] [place] [address] Social History Tobacco Use Types [...] Sex Assigned at Female 11/23/2024 11:53 AM SLACK LINE YARDER Legal Sex Female 8:48 PM CDT Gender Identity Not on file Sexual Orientation Not on file documented as of this encounter Plan of Treatment Upcoming Encounters Date Type Department Care Team (Late st Contact Info) Description 10/19/2025 1:45 PM SLACK LINE YARDER Office Visit [facility] [address] Jean Gonzalez MD Three [facility] [address] [place] [address] 11/19/2025 9:40 AM SLACK LINE YARDER Office Visit [facility] Internal Medicine - [address] [phone] Glory Jin FNP [address] [place] [address] 11/29/2025 10:00 AM SLACK LINE YARDER [facility] THREE [facility], [address] [place] [address] Marcos Fu MD Three [facility]. [facility] [address] [place] [address] 07/01/2026 10:20 AM CDT Office Visit [facility] - [facility] [address] [facility], [address] [place] [address] Sona Campos MD [address] [place] [address] documented as of this encounter Visit Diagnoses Not on filedocumented in this encounter Additional Health Concerns Assessment Noted Time PHQ-9 Depression Total Score: 0 11/22/19 24 11:12 AM SLACK LINE YARDER documented as of this encounter Care Teams Embedded Nurse Relationship Specialty Start Date End Date Glory Jin FNP [facility] [place] [address] PCP - General NURSE PRACTITIONER 08/20/18 Jean Gonzalez MD Three [facility] [address] [place] [address] Consulting Physician CARDIOVASCULAR DISEASE 02/12/25 Sona Campos MD [address] [place], [place] [address] Consulting Physician NEUROLOGY 02/12/25 documented as of this encounter
--- OUTSIDE RECORDS SUMMARY | 2025-08-14 09:59 | XMS_ITS | Encounter Summary ---
Author Organization [facility] Address [address] [place] [address] Care Team Providers Care Stull Hewer Name Role Phone RobbyGlory rodriges CESAR Primary Care Provider [phone] Jean Gonzalez MD Unavailable [phone] Sona Campos MD Unavailable [phone] Encounter Details Date Type Department Care Team (Late st Contact Info) Description 11/29/2024 Prep for Procedure [facility], [facility] [address] [place] [address] Marcos Fu MD [facility]. [facility] [address] [place] [address] Social History Tobacco Use Types [...] Sex Assigned at Female 11/23/2024 11:53 AM PHYSICAL METEOROLOGIST Legal Sex Female 8:48 PM CDT Gender Identity Not on file Sexual Orientation Not on file documented as of this encounter Plan of Treatment Upcoming Encounters Date Type Department Care Team (Late st Contact Info) Description 10/19/2025 1:45 PM PHYSICAL METEOROLOGIST Office Visit [facility] [address] Jean Gonzalez MD Three [facility] [address] [place] [address] 11/19/2025 9:40 AM PHYSICAL METEOROLOGIST Office Visit [facility] Family & Internal Medicine - [address] [address] Glory Jin FNP [address] [place] [address] 11/29/2025 10:00 AM PHYSICAL METEOROLOGIST Office Visit [facility], [facility] [address] [place] [address] Marcos Fu MD Three [facility]. [facility] [address] [place] [address] 07/01/2026 10:20 AM CDT Office Visit [facility] Multispecialty Care - [facility] [address] [facility], [address] [place] [address] Sona Campos MD [address] [place] [address] documented as of this encounter Visit Diagnoses Not on filedocumented in this encounter Additional Health Concerns Assessment Noted Time PHQ-9 Depression Total Score: 0 11/22/19 24 11:12 AM PHYSICAL METEOROLOGIST documented as of this encounter Care Teams Stull Hewer Relationship Specialty Start Date End Date Glory Jin FNP [address] [place] [address] PCP - General NURSE PRACTITIONER 08/20/18 Jean Gonzalez MD Three [facility] [address] [place] [address] Consulting Physician CARDIOVASCULAR DISEASE 02/12/25 Sona Campos MD [address] [place] [address] Consulting Physician NEUROLOGY 02/12/25 documented as of this encounter
--- NOTE | 2025-08-14 10:26 | ED.UPPEXIN ---
HPI - Extremity Injury (Upper) General Chief Complaint: Extremity Injury, Upper Stated Complaint: left wrist/hand pain after fall 2 days ago Time Seen by Provider: 08/14/25 09:36 Source: patient Mode of arrival: ambulatory Limitations: no limitations History of Present Illness HPI narrative: Patient is a 59-year-old female who presents the ED with report of left wrist/hand pain. Patient reports she tripped over her dog 2 days ago and attempted to catch herself with her left wrist. Complains of pain and swelling to her left wrist and hand. History of previous wrist fracture. Denies numbness. Denies any other injuries. Has not taken anything for pain. Related Data Home Medications ?Medication ?Instructions ?Recorded ?Confirmed ?Last Taken ?Type alendronate 70 mg tablet 70 mg PO WEEKLY 09/29/21 12/12/21 Unknown History cyclobenzaprine 10 mg tablet 10 mg PO HS 09/29/21 12/12/21 Unknown History lisinopril 10 mg tablet 10 mg PO DAILY 09/29/21 12/12/21 Unknown History metoprolol tartrate 25 mg tablet 25 mg PO BID 09/29/21 12/12/21 Unknown History rosuvastatin 20 mg tablet 20 mg PO DAILY 09/29/21 12/12/21 Unknown History aspirin 81 mg tablet 81 mg PO DAILY 10/01/21 12/12/21 Unknown History cholecalciferol (vitamin D3) 125 125 mcg PO DAILY 10/01/21 12/12/21 Unknown History mcg (5,000 unit) tablet (Vitamin D3) vitamin B complex (B 1 tablet PO DAILY 10/01/21 12/12/21 Unknown History Complex-Vitamin B12 tablet) Allergies Allergy/AdvReac Type Severity Reaction Status Date / Time acetaminophen (From [place]) Allergy Itching Verified 08/14/25 09:42 hydrocodone (From [place]) Allergy Itching Verified 08/14/25 09:42 Review of Systems Review of Systems: All systems reviewed & are unremarkable except as noted in HPI. All systems reviewed & are unremarkable except as noted in HPI and below PMFSH Past Medical History Medical History Encounter for postoperative care CVA (cerebral vascular accident) x2, weakness right hand Fracture of distal end of left radius High cholesterol Hypertension Surgical History Surgical History H/O left wrist surgery ORIF Left wrist 10/09/[address] Motta S/P IVC filter Hx of CABG x3, 2017 Family History Family History Other Family history of coronary artery disease Social History Social History Smoking packs per day: 1 Smoking cigarettes per day: 20.0 Years smoked: 43 Smoking pack-years: 43.00 Tobacco type: cigarettes Second hand tobacco smoke exposure: Yes Alcohol intake: current Drinks per week: 24 Alcohol use details: beer Substance use: never Substance use type: does not use Living arrangements: with family Gender identity (if verbalized by the patient): Female Spiritual care concerns: No Exam Narrative: GENERAL: Well appearing, well-nourished, non-toxic, in no acute distress. HEAD: Normocephalic, atraumatic. RESPIRATORY: Airway patent, respirations nonlabored. CARDIOVASCULAR: Regular rate and rhythm. Radial pulses strong and easily palpable MUSCULOSKELETAL: Moves all extremities. Diffuse swelling throughout left wrist into left dorsal hand. Slight bruising left dorsal hand. Mild tenderness over distal ulnar region and adjacent carpal bones. No significant snuffbox tenderness. Sensation intact. Good closing coordinator strength. SKIN: Warm, dry, normal color. NEURO: A&O X3. Speech clear. No ataxic movements. PSYCHIATRIC: Appropriate mood and affect. Normal interaction. Course Vital Signs Vital signs: Vital Signs Temperature 98.4 F 08/14/25 09:33 Pulse Rate 88 08/14/25 09:33 Respiratory Rate 18 08/14/25 09:33 Blood Pressure 132/72 08/14/25 09:33 Pulse Oximetry 98 08/14/25 09:33 Oxygen Delivery Room Air 08/14/25 09:33 Temperature 98.4 F 08/14/25 09:33 Pulse Rate 88 08/14/25 09:33 Respiratory Rate 18 08/14/25 09:33 Blood Pressure 132/72 08/14/25 09:33 Pulse Oximetry 98 08/14/25 09:33 Oxygen Delivery Room Air 08/14/25 09:33 MDM - Extremity Injury (Upper) MDM Narrative Medical decision making narrative: Patient?s injury is consistent with musculoskeletal etiology. No signs of neurologic or vascular compromise on physical examination. Compartments are soft without signs of compartment syndrome. XR of left wrist negative for fracture. Does show old/chronic finding/arthritis. Pain is consistent with wrist sprain. Patient is felt to be stable for discharge home and further outpatient management and treatment. Given Joaquim bandage. Discussed rice therapy. Otherwise safe for discharge home. Given return precautions. Discharged in stable condition Medical Records Attestation: I reviewed the patient's medical records. Imaging Data Attestation: I personally reviewed and interpreted this imaging study as follows: Discharge Plan Discharge Clinical Impression: Pain and swelling of left wrist Patient Disposition: Home Condition: Stable Instructions: Antibiotic Form, P.R.I.C.E. Treatment (ED), Wrist Sprain (ED) Additional Instructions: Your x-ray did not show any evidence of fracture. Recommend frequent icing to wrist, Joaquim bandage for compression/support. Recommend Tylenol/ibuprofen as needed for pain. Follow-up with your primary care doctor for further evaluation if needed. Return to the ED for worsening or severe pain or swelling, new injury, numbness, or any other symptoms of concern. Patient Language: Tamazight Prescriptions: No Action cyclobenzaprine 10 mg tablet 10 mg PO HS alendronate 70 mg tablet 70 mg PO WEEKLY Rx Instructions: patient takes on mondays lisinopril 10 mg tablet 10 mg PO DAILY rosuvastatin 20 mg tablet 20 mg PO DAILY metoprolol tartrate 25 mg tablet 25 mg PO BID hydrocodone-acetaminophen 5-325 mg tablet 1 tablet PO Q6H PRN (Reason: pain) Qty: 30 0RF ibuprofen 800 mg tablet 800 mg PO TID PRN (Reason: pain) Qty: 60 1RF aspirin 81 mg Tablet 81 mg PO DAILY vitamin B complex [B Complex-Vitamin B12] Tablet 1 tablet PO DAILY cholecalciferol (vitamin D3) [Vitamin D3] 125 mcg (5,000 unit) Tablet 125 mcg PO DAILY ondansetron 8 mg tablet,disintegrating 8 mg PO Q8H PRN (Reason: nausea and vomiting) Qty: 10 1RF cephalexin 500 mg capsule 500 mg PO Q12H Qty: 14 0RF levetiracetam 500 mg tablet 500 mg PO BID Qty: 60 0RF sennosides-docusate sodium [Senna with Docusate Sodium] 8.6-50 mg tablet 1 tab-cap PO HS Qty: 20 1RF Follow-up/Referrals: NORMA,LAINEY BOWMAN [Primary Care Provider] Time of Disposition: 10:29
[2025-08-14] MEDS: KETOROLAC (*BKC) 60 MG/2 ML VIAL IM (10:38)
--- OUTSIDE RECORDS SUMMARY | 2025-08-14 11:08 | XMS_ITS | Encounter Summary ---
Author Organization [facility] Address [address] [place] [address] Care Team Providers Care News Clerk Name Role Phone RobbyGlory rodriges CESAR Primary Care Provider [phone] Jean Gonzalez MD Unavailable [phone] Sona Campos MD Unavailable [phone] Encounter Details Date Type Department Care Team (Late st Contact Info) Description 11/29/2024 Prep for Procedure [facility] THREE [facility], [facility] [address] [place] [address] Marcos Fu MD [facility]. [facility] [address] [place] [address] Social History Tobacco Use Types [...] Sex Assigned at Female 11/23/2024 11:53 AM HEALTH UNIT COORDINATOR Legal Sex Female 8:48 PM CDT Gender Identity Not on file Sexual Orientation Not on file documented as of this encounter Plan of Treatment Upcoming Encounters Date Type Department Care Team (Late st Contact Info) Description 10/19/2025 1:45 PM HEALTH UNIT COORDINATOR Office Visit [facility] [address] Jean Gonzalez MD Three [facility] [address] [place] [address] 11/19/2025 9:40 AM HEALTH UNIT COORDINATOR Office Visit [facility] Family & Internal Medicine - [address] [address] Glory Jin FNP [address] [place] [address] 11/29/2025 10:00 AM HEALTH UNIT COORDINATOR Office Visit [facility] THREE [facility], [facility] [address] [place] [address] Marcos Fu MD Three [facility]. [facility] [address] [place] [address] 07/01/2026 10:20 AM CDT Office Visit [facility] Multispecialty Care - [facility] [address] [facility], [address] [place] [address] Sona Campos MD [address] [place] [address] documented as of this encounter Visit Diagnoses Not on filedocumented in this encounter Additional Health Concerns Assessment Noted Time PHQ-9 Depression Total Score: 0 11/22/19 24 11:12 AM HEALTH UNIT COORDINATOR documented as of this encounter Care Teams News Clerk Relationship Specialty Start Date End Date Glory Jin FNP [address] [place] [address] PCP - General NURSE PRACTITIONER 08/20/18 Jean Gonzalez MD Three [facility] [address] [place] [address] Consulting Physician CARDIOVASCULAR DISEASE 02/12/25 Sona Campos MD [address] [place] [address] Consulting Physician NEUROLOGY 02/12/25 documented as of this encounter
--- OUTSIDE RECORDS SUMMARY | 2025-08-14 11:08 | XMS_ITS | Clinical Summary ---
Author Organization [facility] Address [address] [place] [address] Care Team Providers Care Environmental Issues Instructor Name Role Phone Flynn Jinanda CESAR Primary Care Provider [phone] Jean Gonzalez MD Unavailable [phone] Sona Campos MD Unavailable [phone] Allergies Active Allergy Reactions Criticality Noted Date [...] deficiency 11/22/2023 Folic acid deficiency 11/22/2023 Seizure ([facility]) 11/22/2023 Vasovagal syncope 03/10/2023 Alcohol dependence in remission ([facility] ) 03/10/2023 Family history of diabetes mellitus [...] n (NSTEMI) 09/05/2017 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 Tobacco dependence syndrome 09/05/2017 Carotid artery disease 05/18/2017 Post-menopausal 04/20/2017 Hypertension 04/13/2017 CVA, old, hemiparesis ([facility]) 03/30/20 12 TIA (transient ischemic attack) 03/29/2012 [...] Type Department Care Team Description 08/10/2025 Telephone [facility] Family & Internal Medicine [address] [address] Glory Jin FNP Refill Request 08/10/2025 Travel 07/26/2025 Scan HEALTH INFO SRVCS Scanned, [facility] 07/25/2025 Telephone [facility] Internal [address] [address] Glory Jin FNP Referral 07/04/2025 8:40 AM CDT Office Visit [facility] Multispecialty Care - [address], [address] [place] [address] Sona Campos MD Seizures 07/04/2025 Travel 06/21/2025 10:15 AM CDT Office Visit [facility], [address] [address] Marcos Fu MD Follow Up 06/21/2025 Travel 05/28/[address] [address] Glory Jin FNP Advice; Medication Request 05/21/2025 Results Follow-Up [facility] [address] [address] Melissa Lozada RN NM PHARM NUC STRESS TEST 1 DAY W TRACING 05/16/2025 10:15 AM CDT - 05/16/2025 11:59 PM CDT Hospital Encounter [facility] [place] [address] Mehul Gil MD Discharge Disposition: Home or [...] standard drink = 0.6 oz pure alcohol) [facility] [employer] Answer Date Recorded In the past 12 months has e [employer] gas, oil, or water [employer] threatened to shut off services in your [...] any time in the past 12 m [facility], were you homeless or living in a long-term (including now)? No 03/09/2025 Comments No Sex and Gender Information Value Date Recorded Sex Assigned at Female 11/23/2024 11:53 AM PUBLICATION DESIGNER Legal Sex Female 8:48 PM CDT Gender [...] st Contact Info) Description 10/19/2025 1:45 PM PUBLICATION DESIGNER Office Visit [facility] [address] Jean Gonzalez MD Three [facility] [address] [place] [address] 11/19/2025 9:40 AM PUBLICATION DESIGNER Office Visit [facility] Family & Internal Medicine - [address] [address] Glory Jin [address] [address] 11/29/2025 10:00 AM PUBLICATION DESIGNER Office Visit [facility] THREE [facility], [address] [address] [place] [address] Marcos Fu MD [facility]. [facility] [address] [place] [address] 07/01/2026 10:20 AM CDT Office Visit [facility] Multispecialty Care - [facility] 3 [facility], [address] [place] [address] Sona Campos MD [address] [place] [address] Health Maintenance Due Date Last Done Comments [...] , 02/05/2021, Additional history exists PHQ-2 (Physician [place]) Completed 03/09/2025 Meningococcal B Vaccine Aged Out [...] perform ADLs independently Lifestyle No Mari Monteiro, CANCER PROGRAM CONSULTANTinstructional aide Devices Implanted Type Area Locker Plant Attendant Device Identifier Shelf Expiration Date Model / Serial / Lot Patch Brigette. Vasc. Vascu-Guard 0.8cm X 8cm - [id number] Implanted:Qty: 1 on 02/26/2025 by Marcos Fu MD at [facility] Mesh Left: Odalys [employer] - BIOSCIENCE 08/28/2026 [id number] / / [id number] Description:RIGHT FEMORAL AR NAKITA PATCH Procedures Procedure [...] Myocardial Perfusion Imaging Pat.Name: LISE MORGAN Pat.ID: [id number] St.Date: 05/16/2025 Refer.MD: Mehul Gil [id number] Exam Time: 11:26:00 AM Study Type:VIVIANE NC HT MUSCLE IMAGE SPECT MULTI Age: 11 1965,59Y Sex: F Sonogrphr: MARLA Prescott Pat. Stat.:Outpatient Reason for Study:Chest pain, History of MS, Evaluation of known CAD History / Clinical:Smoker, [...] 76 % Max BP: 118/52 Max RPP: [id number] O2 sat: 99 % Symptoms and Complications: Arrhythmias: None Terminated: Protocol completed Symptoms: None Complications: None Stress ECG Interp: Sinus tachycardia <Electronic Signature> 05/19/2025 12:30 PM Jean Gonzalez M.D. Procedure Note Jean Gonzalez MD - 05/19/2025 Myocardial Perfusion Imaging Pat.Name: LISE MORGAN Pat.ID: [id number] .Date: 05/16/2025 Refer.: Mehul Gil [id number] Exam Time: 11:26:00 AM Study Type:VIVIANE NC HT MUSCLE IMAGE SPECT MULTI Age: 11 1965,59Y Sex: F Sonogrphr: Penny Antunez [facility] Pat. Stat.:Outpatient Reason for Study:Chest pain, History of MS, Evaluation of known CAD History / Clinical:Smoker, [...] 76 % Max BP: 118/52 Max RPP: [id number] O2 sat: 99 % Symptoms and Complications: [...] - 07/17/2022 5:07 AM CDT Performed at: [facility] [id number] Enforcement Manager: Kamron Barkley PhD, Phone: [phone] us Glory [facility] Final Result [facility] [address] [place] [address] [facility] 1 * THINPREP IMAGING SYSTEM PAP [...] slide preparation; their use is not recommended. GLOVE PRINTER SEE NOTE [facility] TO EPIC CONVERSION Comment: Result Comment: YADI CT(ASCP) CT screening location: [address] [place] [address] REVIEW GLOVE PRINTER: SEE NOTE [facility] T O EPIC CONVERSION Comment: Result Comment: NATASHA CT(ASCP) CT screening location: [address] [place] [address] Test Performed at: [address] [address] DANIA CRUZ MD 04/13/2017 9:00 AM CDT [...] of this assay have been determined by [facility]. The modifications have not been cleared or approved by the FDA. This assay has been validated pursuant to the CLIA regulations and is used for clinical purposes. Test Performed at: [facility] [address] [place] [id number] Ratna ALFORD 04/13/2017 9:00 AM CDT 04/13/2017 9:00 AM CDT Narrative [facility] TO EPIC CONVERSION - 04/14/2017 6:09 AM CDT Result Communication: No patient communication needed at this time Glory [facility] PATHOLOGY/CYTOLOGY ORDERABLES Final Result [facility] TO EPIC CONVERSION from Last 3 Months or Most Recently Relevant to Health Maintenance Insurance [facility] Advance Directives * Full Code (Latest Code Status on File) Date Activated Date Inactivated Comments 03/09/2025 6:46 PM 03/12/2025 1:02 PM Care Teams Environmental Issues Instructor Relationship Specialty Start Date End Date Glory Jin FNP [address] [place] [address] PCP - General NURSE PRACTITIONER 08/20/18 Jean Gonzalez MD Three [facility] [address] [place] [address] Consulting Physician CARDIOVASCULAR DISEASE 02/12/25 Sona Campos MD [address] [place] [address] Consulting Physician NEUROLOGY 02/12/25
--- OUTSIDE RECORDS SUMMARY | 2025-08-14 11:08 | XMS_ITS | Clinical Summary ---
Author Organization [facility] Address [address] [place] [address] Care Team Providers Care Acoustical Tile Drill Press Operator Name Role Phone DesiDaniel key Isabella DO Primary Care Provider [phone] Source Comments [facility],non-owned Affiliates and Associated Physician Practices is amultiple site organization consisting of ambulatory clinics and hospital sitesin [place], [place]. This disclosure is being madepursuant to the Care Everywhere program and may not contain all information available regarding this patient. Last updated 18.[facility] Allergies No known active allergies Medications * [...] on file Legal Sex Female 9:59 AM SOLAR MAINTENANCE TECHNICIAN Gender Identity Not on file Sexual Orientation [...] 9:50 AM CDT Height 168.9 cm (5' 6.5) 05/19/2018 9:50 AM CDT Body Mass Index [...] 2013 ZOSTER VACCINE (1 of 2) 2013 DEPRESSION SCREENING 11/08/2024 COVID-19 VACCINE ( - 2023-2 5 season) 2025 INFLUENZA VACCINE (#1) 2025 Respiratory Syncytial Virus (RSV) Vaccine Pt: [...] age to complete this topic Insurance ANTHEM Care Teams Acoustical Tile Drill Press Operator Relationship Specialty Start Date End Date Daniel Gonzalez DO PCP - General 05/03/18
--- OUTSIDE RECORDS SUMMARY | 2025-08-14 11:08 | XMS_ITS | Encounter Summary ---
Author Organization [facility] Address [address] [place] [address] Care Team Providers Care Wet Process Miller Name Role Phone Glory Jin Primary Care Provider [phone] Jean Gonzalez MD Unavailable [phone] Sona Campos MD Unavailable [phone] Reason for Referral * Surgical (Routine) - Authorized Specialty Diagnoses / Procedures Referred By Jamarcus lynn Referred To Contact Diagnoses Stenosis of common iliac artery Procedures Case request operating room: ENDARTERECTOMY SUPERFICIAL FEMORAL ARTERY (LEFT LEG) WITH COMMON ILIAC STENT PLACEMENT (LEFT LEG) Marcos Fu MD [facility]. [facility] [address] [place] [address] Phone: tel: fax: Referral ID Status Reason Start Date Expiration Date V isits Requested Visits Authorized [id number] Authorized 01/26/2025 01/26/2026 1 1 Encounter Details Date Type Department Care Team (Late st Contact Info) Description 01/26/2025 Prep for Procedure [facility], [facility] [address] [place] [address] Marcos Fu MD [facility]. [facility] [address] [place] [address] Social History Tobacco Use Types [...] Sex Assigned at Female 11/23/2024 11:53 AM VICE PROVOST Legal Sex Female 8:48 PM CDT Gender Identity Not on file Sexual Orientation Not on file documented as of this encounter Plan of Treatment Upcoming Encounters Date Type Department Care Team (Late st Contact Info) Description 10/19/2025 1:45 PM VICE PROVOST Office Visit [facility]-[address] [address] Jean Gonzalez MD [facility] [address] [facility] [place] [address] 11/19/2025 9:40 AM VICE PROVOST Office Visit [facility] Family & Internal Medicine - [address] [address] Glory Jin FNP [address] [place] [address] 11/29/2025 10:00 AM VICE PROVOST Office Visit [facility], [address] [place] [address] Marcos Fu MD [facility]. [facility] [address] [place] [address] 07/01/2026 10:20 AM CDT Office Visit [facility] Multispecialty Care - [facility] [address] [facility], [address] [place] [phone] Sona Campos MD [address] [place] [address] Scheduled Orders Name Type Priority Associated Diagnoses Order Schedule Case request operating room: ENDARTERECTOMY SUPERFICIAL FEMORAL ARTERY (LEFT LEG) WITH COMMON ILIAC STENT PLACEMENT (LEFT LEG) Case Request Routine Stenosis of common iliac artery Once for 1 Occurrences starting 01/26/2025 until 01/26/2025 documented as of this encounter Results * TYPE & SCREEN (02/12/2025 10:12 AM CDT) ABO/RH O POSITIVE 02/12/2025 11:37 AM CDT [facility] ANTIBODY SCREEN NEGATIVE 02/12/2025 11:37 AM CDT [facility] SAMPLE EXPIRATION 03/01/2025,2 359 02/26/2025 7:43 AM CDT [facility] BB COMMENT NO HISTORY OF TRANSFUSIONS , OR ANTIBODIES, NEW SPECIMEN NOT NEEDED 02/26/2025 7:43 AM CDT [facility] 02/12/2025 10:1 2 AM CDT Marcos Fu MD BLOOD BANK TEST ORDERABLES Final Result [facility] [address] [place] [address], [place] [phone] * (ABNORMAL) COMPREHENSIVE METABOLIC PANEL (02/12/2025 10:12 AM CDT) GLUCOSE 114(H) 70 - 99 MG/DL 02/12/2025 11:12 AM CDT [facility] BUN 6(L) 7 - 18 MG/DL 02/12/2025 11:12 AM CDT [facility] CREATININE S/P/B 0.55 0.55 - 1.02 MG/DL 02/12/2025 11:12 AM CDT [facility] SODIUM S/P/B 130(L) 136 - 145 MMOL/L 02/12/2025 11:12 AM CDT [facility] POTASSIUM S/P/B 3.9 3.5 - 5.1 MMOL/L 02/12/2025 11:12 AM T [facility] CHLORIDE S/P/B 98 97 - 115 MMOL/L 02/12/2025 11:12 AM T [facility] CO2 25.1 21 - 32 MMOL/L 02/12/2025 11:12 AM T [facility] CALCIUM S/P/B 9.0 8.5 - 10.1 MG/DL 02/12/2025 11:12 AM T [facility] BILIRUBIN TOTAL S/P/B 1.4(H) 0.2 - 1.2 MG/DL 02/12/2025 11:12 AM T [facility] Comment: THIS ASSAY IS NOT RECOMMENDED FOR PATIENTS UNDERGOING TREATMENT WITH ELTROMBOPAG DUE TO THE POTENTIAL FOR FALSELY ELEVATED RESULTS. TOTAL PROTEIN S/P/B 7.9 6.4 - 8.2 G/DL 02/12/2025 11:12 AM T [facility] ALBUMIN S/P/B 2.9(L) 3.4 - 5.0 G/DL 02/12/2025 11:12 AM T [facility] AST 114(H) 15 - 37 U/L 02/12/2025 11:12 AM T [facility] ALT 62(H) 14 - 55 U/L 02/12/2025 11:12 AM CDT [facility] ALKALINE PHOSPHATASE S/P/B 161(H) 50 - 136 U/L 02/12/2025 11:12 AM CDT [facility] ANION GAP 6.9 2 - 10 MMOL/L 02/12/2025 11:12 AM CDT [facility] BUN CREATININE RATIO 10.8 6 - 26 02/12/2025 11:12 AM CDT [facility] A/G RATIO 0.6(L) 1.0 - 2.0 RATIO 02/12/2025 11:12 AM CDT [facility] GFR ESTIMATE >90 >90 ML/MIN/1.7 3 M2 02/12/2025 11:12 AM CDT [facility] Comment: NOTE: eGFR is not [...] CDT Marcos Fu MD LABORATORY Final Result [facility] [address] [place] [address], * (ABNORMAL) PROTIME/INR, VENOUS (02/12/2025 10:12 AM CDT) PROTIME 14.1(H) 10.2 - 12.9 SEC 02/12/2025 11:09 AM CDT [facility] INR 1.2 02/12/2025 11:09 AM CDT [facility] Comment: Recommended INR Therapeutic Goals: 2.0-3.0 Routine Therapy 2.5-3.5 Mechanical Prosthetic Valves (High Risk) 02/12/2025 10:1 2 AM CDT us Marcos Fu MD LABORATORY Final Result [facility] [address] [place] [address], [place] [phone] * (ABNORMAL) CBC W/DIFF AUTOMATED (02/12/2025 10:12 AM CDT) WBC 7.85 4.5 - 11.0 x10'3/uL 02/12/2025 11:06 AM CDT [facility] RBC 3.72(L) 4.20 - 5.40 x10'6/uL 02/12/2025 11:06 AM CDT [facility] HGB 12.2 12.0 - 16.0 G/DL 02/12/2025 11:06 AM CDT [facility] HCT 34.4(L) 38.0 - 48.0 % 02/12/2025 11:06 AM CDT [facility] MCV 92.5 81.0 - 99.0 FL 02/12/2025 11:06 AM CDT [facility] MCH 32.8(H) 27.0 - 31.0 PG 02/12/2025 11:06 AM CDT [facility] MCHC 35.5 32.0 - 36.0 G/DL 02/12/2025 11:06 AM CDT [facility] RDW 14.5 11.5 - 14.5 % 02/12/2025 11:06 AM CDT [facility] PLT 104(L) 130 - 400 x10'3/uL 02/12/2025 11:06 AM CDT [facility] MPV 11.2 9.3 - 12.2 FL 02/12/2025 11:06 AM CDT [facility] DIFFERENTIAL TYPE AUTOMATED DIFFERENTIAL 02/12/2025 11:06 AM T [facility] NEUTROPHILS % 65.2 % 02/12/2025 11:06 AM T [facility] LYMPHOCYTES % 22.4 % 02/12/2025 11:06 AM T [facility] MONOCYTES % 9.7 % 02/12/2025 11:06 AM T [facility] EOSINOPHILS 1.5 % 02/12/2025 11:06 AM T [facility] BASOPHILS 0.8 % 02/12/2025 11:06 AM T [facility] IMMATURE GRANS % 0.4 % 02/13/20 11:06 AM T [facility] ABS. NEUTROPHILS 5.12 1.80 - 7.70 x10'3/uL 02/12/2025 11:06 AM T [facility] ABS. LYMPHOCYTES 1.76 1.00 - 4.80 x10'3/uL 02/12/2025 11:06 AM [facility] ABS. MONOCYTES 0.76 0.24 - 0.86 x10'3/uL 02/12/2025 11:06 AM [facility] ABS. EOSINOPHILS 0.12 0.04 - 0.36 x10'3/uL 02/12/2025 11:06 AM T [facility] ABS. BASOPHILS 0.06 0.01 - 0.08 x10'3/uL 02/12/2025 11:06 AM [facility] ABS. IMMATURE GRANULOCYTES 0.03 0.00 - 0.49 x10'3/uL 02/12/2025 11:06 AM [facility] 02/12/2025 10:1 2 AM CDT Marcos Fu MD LABORATORY Final Result [facility] [address] [place] [address], [place] [phone] * MRSA SCREENING (02/12/2025 10:11 AM CDT) SPEC DESCRIPTION NASAL 02/12/2025 10:10 AM CDT [facility] SPECIAL REQUESTS NO SPECIAL REQUEST 02/12/2025 10:10 AM CDT [facility] CULTURE RESULT NO METHICILLIN RESISTANT STAPHYLOCOCCUS AUREUS ISOLATED 02/13/2025 1:00 PM CDT [facility] SPECIMEN FROM INTERNAL NOSE / Unknown 02/12/2025 10:11 AM CDT 02/12/2025 10:12 AM CDT Marcos Fu MD MICROBIOLOGY - GENERAL ORDERABLE S Final Result Performing Organization Address City/[facility]/ZIP Co de Phone Number [facility] [address] [place] [address], [place] [phone] documented in this encounter Visit Diagnoses Diagnosis Stenosis of common iliac artery- Primary documented in this encounter Additional Health Concerns Assessment Noted Time PHQ-9 Depression Total Score: 0 11/22/19 24 11:12 AM VICE PROVOST documented as of this encounter Care Teams Wet Process Miller Relationship Specialty Start Date End Date Glory Jin FNP [address] [place] [address] PCP - General NURSE PRACTITIONER 08/20/18 Jean Gonzalez MD [address] [facility] [address] [place] [address] Consulting Physician CARDIOVASCULAR DISEASE 02/12/25 Sona Campos MD [address] [place] [address] Consulting Physician NEUROLOGY 02/12/25 documented as of this encounter
--- OUTSIDE RECORDS SUMMARY | 2025-08-14 11:08 | XMS_ITS | Encounter Summary ---
Author Organization [facility] Address [address] [place] [address] Care Team Providers Care Harness Cutter Name Role Phone RobbyGlory rodriges CESAR Primary Care Provider Jean Gonzalez MD Unavailable [phone] Sona Campos MD Unavailable [phone] Encounter Details Date Type Department Care Team (Late st Contact Info) Description 11/06/2024 Prep for Procedure [facility], [facility] [address] [place] [address] Marcos Fu MD [facility]. [facility] [address] [place] [address] Social History Tobacco Use Types [...] Sex Assigned at Female 11/23/2024 11:53 AM NEWS PRODUCER Legal Sex Female 8:48 PM CDT Gender Identity Not on file Sexual Orientation Not on file documented as of this encounter Plan of Treatment Upcoming Encounters Date Type Department Care Team (Late st Contact Info) Description 10/19/2025 1:45 PM NEWS PRODUCER Office Visit [facility]-[address] [phone] Jean Gonzalez MD Three [facility] [address] [place] [address] 11/19/2025 9:40 AM NEWS PRODUCER Office Visit [facility] Family & Internal Medicine - [address] [phone] Glory Jin FNP [address] [place] [address] 11/29/2025 10:00 AM NEWS PRODUCER Office Visit [facility] [address] [facility], [address] [place] [address] Marcos Fu MD Three [facility]. [facility] [address] [place] [address] 07/01/2026 10:20 AM CDT Office Visit [facility] Multispecialty Care - [facility] [address] [facility], [address] [place] [address] Sona Campos MD [address] [place] [address] documented as of this encounter Visit Diagnoses Not on filedocumented in this encounter Additional Health Concerns Assessment Noted Time PHQ-9 Depression Total Score: 0 11/22/19 24 11:12 AM NEWS PRODUCER documented as of this encounter Care Teams Harness Cutter Relationship Specialty Start Date End Date Glory Jin FNP [facility] [place] [address] PCP - General NURSE PRACTITIONER 08/20/18 Jean Gonzalez MD Three [facility] [address] [place] [address] Consulting Physician CARDIOVASCULAR DISEASE 02/12/25 Sona Campos MD [address] [place], [place] [address] Consulting Physician NEUROLOGY 02/12/25 documented as of this encounter
--- OUTSIDE RECORDS SUMMARY | 2025-08-14 11:08 | XMS_ITS | Encounter Summary ---
Author Organization [facility] Address [address] [place] [address] Care Team Providers Care Senior Java Ui Developer Name Role Phone Chapo Bailey MD Primary Care Provide r Daniel Gonzalez DO Primary Care Provider [phone] Encounter Details Date Type Department Care Team (Late st Contact Info) Description 04/14/2016 [facility] Outpatient Visit [facility] [address] [place] [address] [place] [address] [place] [id number] Social History Tobacco Use Types Packs/Day Years Used Date Smoking Tobacco: Every Day Cigarettes 1 37 Smokeless Tobacco: Never Alcohol Use Standard Drinks/Week Comments Yes 0 (1 standard drink = 0.6 oz pur e alcohol) 2 12 packs beer a week Comments No Sex and Gender Information Value Date Recorded Sex Assigned at Not on file Legal Sex Female 9:59 AM MANAGER STRATEGIC Gender Identity Not on file Sexual Orientation Not on file documented as of this encounter Plan of Treatment Not on file documented as of this encounter Visit Diagnoses Not on filedocumented in this encounter Care Teams Senior Java Ui Developer Relationship Specialty Start Date End Date Chapo Bailey MD PCP - General Family Medicine 01/02/16 05/02/18 Daniel Gonzalez DO PCP - General 05/03/18 documented as of this encounter
== END 2025-08-14 10:55 | disposition home or self-care (01) ==
PROVIDERS: Emergency Provider Physician Assistant; PCP Nurse Practitioner Family
DX: S69.92XA Unspecified injury of left wrist, hand and finger(s), initial encounter (principal); I10 Essential (primary) hypertension; I69.931 Monoplegia of upper limb following unspecified cerebrovascular disease affecting right dominant side; E78.00 Pure hypercholesterolemia, unspecified; F17.210 Nicotine dependence, cigarettes, uncomplicated; Z95.1 Presence of aortocoronary bypass graft; Z79.899 Other long term (current) drug therapy; Z79.82 Long term (current) use of aspirin; W01.0XXA Fall on same level from slipping, tripping and stumbling without subsequent striking against object, initial encounter
CPT/HCPCS: 73110; 96372; 99283; J1885